=== PATIENT | female | born 1945 | race Two or more races ===

== ENCOUNTER → 2017-08-14 | Outpatient (REF) | payer MEDICARE, OTHER ==
[2017-08-14 16:34] LABS: ANION GAP 9 MEQ/L (8-16); BLOOD UREA NITROGEN 9 MG/DL (7-18); CARBON DIOXIDE LEVEL 25 MEQ/L (21-32); CHLORIDE LEVEL 104 MEQ/L (98-107); CREATININE FOR GFR 0.76 MG/DL (0.55-1.02); GLOMERULAR FILTRATION RATE > 60.0 (>39); GLUCOSE, FASTING 169 MG/DL (83-110); POTASSIUM SERUM 4.3 MEQ/L (3.5-5.1); SODIUM LEVEL 138 MEQ/L (136-145)
== END ==
LOC: M SFHCLERA 11:26
PROVIDERS: ATTEND Family Medicine
DX: E11.9 Type 2 diabetes mellitus without complications (principal)
CPT/HCPCS: 80048; 83036; G0463

== ENCOUNTER → 2019-01-18 | Outpatient (REF) | payer MEDICARE, OTHER ==
[2019-01-18 18:09] LABS: BASO # 0.1 10^3/uL (0.0-0.2); EOS # 0.4 10^3/uL (0.0-0.50); EOS % 6.6 % (0.0-3.0); HEMATOCRIT 41.4 % (36.0-47.0); HEMOGLOBIN 13.9 g/dl (12.0-15.5); LYMPH # 1.2 10^3/uL (1.5-4.5); LYMPH % 20.5 % (24.0-44.0); MEAN CORPUSCULAR HEMOGLOBIN 29.7 pg (27.0-33.0); MEAN CORPUSCULAR HGB CONC 33.6 g/dl (32.0-36.5); MEAN CORPUSCULAR VOLUME 88.5 fl (80.0-96.0); MONO # 0.4 10^3/uL (0.0-0.8); MONO % 6.4 % (0.0-5.0); NEUTROPHILS # 3.8 10^3/uL (1.8-7.7); NEUTROPHILS % 65.3 % (36.0-66.0); PLATELET COUNT, AUTOMATED 148 10^3/uL (150-450); RED BLOOD COUNT 4.68 10^6/uL (4.00-5.40); WHITE BLOOD COUNT 5.8 10^3/uL (4.0-10.0)
[2019-01-18 18:12] LABS: ALBUMIN 3.6 GM/DL (3.2-5.2); ALT/SGPT 40 U/L (12-78); BILIRUBIN,TOTAL 0.4 MG/DL (0.2-1.0); BLOOD UREA NITROGEN 20 MG/DL (7-18); CALCIUM LEVEL 8.6 MG/DL (8.8-10.2); CARBON DIOXIDE LEVEL 25 MEQ/L (21-32); CHLORIDE LEVEL 107 MEQ/L (98-107); CHOLESTEROL LEVEL 198 MG/DL (<200); CHOLESTEROL RISK RATIO 5.351 (<5); CREATININE FOR GFR 0.81 MG/DL (0.55-1.30); GLOMERULAR FILTRATION RATE > 60.0 (>39); GLUCOSE, FASTING 223 MG/DL (70-100); HDL CHOLESTEROL 37 MG/DL (>40); LDL CHOLESTEROL 130 MG/DL (<100); NON-HDL-C 161 MG/DL; POTASSIUM SERUM 4.5 MEQ/L (3.5-5.1); SODIUM LEVEL 139 MEQ/L (136-145); TOTAL PROTEIN 7.2 GM/DL (6.4-8.2); TRIGLYCERIDES LEVEL 153 MG/DL (<150)
[2019-01-18 18:40] LABS: CREATININE, URINE 85.7 MG/DL; MALB URINE SIEMENS 19.4 MG/L; MAU/CREAT RATIO 22.6 MCG/MG (0.0-30.0)
[2019-01-18 18:50] LABS: HEMOGLOBIN A1c 10.6 %
== END ==
LOC: M SFHCLERA 10:12
PROVIDERS: ATTEND Nurse Practitioner Family
DX: Z13.220 Encounter for screening for lipoid disorders (principal); E11.9 Type 2 diabetes mellitus without complications

== ENCOUNTER → 2019-05-09 | Outpatient (CLI) | payer MEDICARE, OTHER ==
[~2019-05-09] MED LIST: B COTAB PO; METF10004 PO; RA M200C4 PO; RA T500C2 PO; TURM1CAP5 PO; VITA-183 PO
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
== END ==
LOC: M ONCR 08:52
PROVIDERS: ATTEND Radiology Radiation Oncology
DX: C21.1 Malignant neoplasm of anal canal (principal)

== ENCOUNTER → 2019-05-13 | Outpatient (CLI) | payer MEDICARE, OTHER ==
[~2019-05-13] MED LIST changes: +GASTROGRAFIN SOLUTION 30ML (Q9963) As Ordered ONE; +ISOVUE-370 76% 100ML VIAL (Q9967) As Ordered ONE
--- NOTE | 2019-05-14 08:33 | REP ---
REASON: Bowel carcinoma. COMPARISON: None. CONTRAST: 100 mL Isovue 370. The lung bases are clear. The precontrast enhanced portion of the examination shows hepatic and splenic densities to be within normal limits. There are no nephroliths. The contrast enhanced portion of the examination shows the liver, spleen, pancreas, adrenal glands, and kidneys to be within normal limits. The abdominal aorta and paraaortic regions are within normal limits. Small paraaortic lymph nodes are present. The bowel loops and their mesenteries are within normal limits. There is no intra-abdominal mass or adenopathy. There is no free fluid or free air. CT PELVIS: The bowel loops and their mesenteries are within normal limits. There is sigmoid colon diverticulosis. There is no mass or adenopathy. There is no free fluid or free air. Bone window technique throughout the exam shows a right hip prosthesis and chronic spinal degenerative changes. IMPRESSION: No acute intra-abdominal or intrapelvic disease. Findings as described above. Electronically Signed by Trace Matson DO 05/14/2019 11:25 A
== END ==
LOC: M RAD 11:30
PROVIDERS: ATTEND Internal Medicine Hematology & Oncology
DX: C21.0 Malignant neoplasm of anus, unspecified (principal)
CPT/HCPCS: 74178; Q9963; Q9967

== ENCOUNTER → 2019-05-15 | Outpatient (CLI) | payer MEDICARE, OTHER ==
[~2019-05-15] MED LIST changes: -GASTROGRAFIN SOLUTION 30ML (Q9963) As Ordered ONE; -ISOVUE-370 76% 100ML VIAL (Q9967) As Ordered ONE
--- NOTE | 2019-05-15 20:24 | REP ---
Body PET CT scan for staging of anal carcinoma: Comparison is the abdomen/pelvis CT dated 05/13/2019. Whole-body scanning is performed from skull base to the upper thighs. Neck and supraclavicular areas: There are no hypermetabolic foci. There is artifactual uptake in the vocal cords. Chest: There are no hypermetabolic foci. Abdomen, pelvis and upper thighs: There are numerous diverticula in the sigmoid colon. Many of these diverticuli are opacified. Some of these diverticuli over the dome of the bladder have a high and uptake values s as a high as 22 . The radiolabeled urine in the bladder has a maximal u of 22. Therefore, the high . Uptake values within some of these diverticuli may represent vesico-diverticular fistula. In addition, there is a focal curvilinear zone of hypermetabolic uptake in the distal rectosigmoid colon lumen posterior to the bladder with a maximal standard uptake value of 8.7. This could represent a hypermetabolic polyp or possibly a bladder fistulization. There are no other hypermetabolic foci. Specifically there are no pelvic, retroperitoneal or periaortic foci. No mesenteric foci. No hepatic or adrenal foci. Impression: There are hypermetabolic foci in distal sigmoid colonic diverticula . The standard uptake values in the diverticula over the bladder dome are similar to the standard uptake value of the radiolabeled urine in the bladder. Therefore, the possibility of vesico- colonic/diverticular fistulization is raised. Additionally, there is a focal hypermetabolic focus in the distal rectosigmoid colon lumen that could represent an intraluminal polyp or another area of vesico-colonic fistulization. There are no hypermetabolic foci otherwise. The study is performed with 8.61 mCi of F 18 FDG. Electronically Signed by Doug Flaherty MD 05/15/2019 08:16 P
== END ==
LOC: M PLARAD 11:50
PROVIDERS: ATTEND Radiology Radiation Oncology
DX: C20 Malignant neoplasm of rectum (principal)
CPT/HCPCS: 78815; A9552

== ENCOUNTER 2019-05-17 07:41 | Outpatient (RCR) | payer MEDICARE, OTHER ==
--- NOTE | 2019-05-21 15:09 | RADONC ---
RADIATION ONCOLOGY SIMULATION NOTE DATE: 05/17/2019 CHART NUMBER: [id number] SIMULATION NOTE: Ms. Beard was taken to the CT scan for CT simulation of her anal field. CT was accomplished without difficulty or discomfort. Radiation treatment planning is underway and radiation treatments will begin subsequently. An immobilization device was created and will be used throughout the course of treatment. It was created without difficulty or discomfort. I was physically present throughout the course of CT simulation.
[2019-06-03] MEDS ORDERED: LIDO2.5C15 TOP (10:32)
[2019-06-03] MEDS ORDERED: ONDA4TAB5 PO (10:55)
[2019-06-04] MEDS ORDERED: LIDO2.5C15 TOP (07:15)
== END 2019-05-25 ==
LOC: M ONCR 07:41
PROVIDERS: ATTEND Radiology Radiation Oncology
DX: C21.1 Malignant neoplasm of anal canal (principal)

== ENCOUNTER → 2019-05-23 | Outpatient (CLI) | payer MEDICARE, OTHER ==
[~2019-05-23] MED LIST changes: +ACETAMINOPHEN 325 MG TAB As Ordered ONE; +ACETAMINOPHEN TAB 650MG DOSE (2X325MG) PO ONE; +HEPARIN 1,000 UNITS/ML 10ML VIAL (FOR RADIOLOGY& DIALYSIS ONLY) As Ordered ONE; +LIDOCAINE 1% MDV 20ML VIAL As Ordered ONE; +MIDAZOLAM INJ 2 MG/2 ML VIAL (J2250) As Ordered ONE; +ceFAZolin 1GM INJ (J0690 PER 500MG) As Ordered ONE; +ceFAZolin 1GM INJ (J0690 PER 500MG) IV ONE; +diazePAM 5 MG TAB As Ordered ONE; +diphenhydrAMINE INJ 50MG/ML VIAL (J1200) As Ordered ONE; +fentaNYL 100 MCG/2 ML INJECTION (J3010) As Ordered ONE
--- NOTE | 2019-05-23 11:00 | IRHP ---
[facility] IR Pre-Procedure H & P General Date of Service: May 23, 2019 Procedure: Same Day Surgery Interval History and Physical I have seen the patient and reviewed last H & P performed within 30 days. There is no significant interval change. History of Present Illness Chief Complaint The patient is a 73-year-old female admitted with a reason for visit of Anal Ca. PRE-PROCEDURE DIAGNOSIS: anal cancer HEART: normal rate. LUNGS: normal breathing at rest. ASA Classification ASA Classification: II-Mild systemic disease Mallampati Score: II NPO: Yes Problems with prior sedation: No Obstructive Sleep Apnea: No Plan moderate sedation Allergies Coded Allergies: No Known Allergies (Unverified , 05/07/19) Home Medications Scheduled Cholecalciferol (Vitamin D3) (Vitamin D3), 1,000 UNIT PO DAILY, (Reported) Metformin HCl (Metformin HCl), 1,000 MG PO BID, (Reported) Turmeric/Turmeric Ext/Pepr Ext (Turmeric Complex 500 mg Cap), 1 CAP PO DAILY, (Reported) Vitamin B Complex (B Complex # 1), 1 TAB PO DAILY, (Reported) Miscellaneous Medications Milk Thistle Seed Extract (Milk Thistle), 1,000 MG PO, (Reported) Turmeric Root Extract (Turmeric), 500 MG PO, (Reported) VS, I&O, 24H, Fishbone Vital Signs/I&O Vital Signs Date Time Temp Pulse Resp B/P (MAP) Pulse Ox O2 Delivery O2 Flow Rate FiO2 05/23/19 10:42 97.8 61 16 99 DOROTHY MIRELES MD May 23, 2019 11:00
--- NOTE | 2019-05-23 15:27 | POST-OPPD ---
Postoperative Procedure Note Date Of Procedure: May 23, 2019 Time Of Procedure: 15:25 PREOPERATIVE DIAGNOSIS: anal ca POSTOPERATIVE DIAGNOSIS: anal ca FINDINGS: normal right IJ PROCEDURE: right IJ port SURGEON: rupinder ANESTHESIA: moderate sedation ESTIMATED BLOOD LOSS: < 15 ml COMPLICATIONS: none POSTOPERATIVE CONDITION: stable DOROTHY MIRELES MD May 23, 2019 15:26
--- NOTE | 2019-05-23 15:53 | REP ---
IR Ultrasound and fluoroscopy-guided port placement. IR Ultrasound of the neck. IR Moderate sedation. Clinical information: Anal cancer. Physician: Dr. Domínguez. Procedure: The patient was advised of the benefits, risks, and alternatives of the procedure and informed consent was obtained. A time-out was performed with verification of the patient's name, MRN, site of procedure and type of procedure to be performed. The patient was positioned in the supine position on the angiographic table. The site was prepped and draped in the usual sterile fashion. Moderate sedation was performed by the physician including the presence of an independent trained observer who assisted and monitored the patient's level of consciousness and physiologic status. Following the administration of Fentanyl and Versed, the physician spent 45 minutes of continuous face to face time with the patient. Ultrasound of the neck reveals a patent and compressible right internal jugular vein. A category director radiograph reveals no gross abnormality. The neck and anterior chest wall were anesthetized with lidocaine. The right internal jugular vein was accessed using a microintroducer needle by a lateral approach. An 018 wire was advanced into the superior vena cava, the needle was removed and a microsheath was placed. An Amplatz wire was then passed into the inferior vena cava. An incision at the internal jugular vein access site and anterior chest wall were made using a scalpel. An incision was made at the anterior chest wall. A small pocket was created using a combination of blunt and sharp dissection. A tunneling device was then used to pass the catheter from the pocket to the neck puncture site. An 8-[place] [employer] power port was then positioned in the pocket. The catheter was then measured and cut. The introducer sheath was exchanged for a peel-away sheath. The catheter was passed through the peel-away sheath into the internal jugular vein and the peel-away sheath was removed. The port tip was positioned at the cavo atrial junction. The port was then accessed with a Sarmiento needle. The port flushes and aspirates well. The puncture site in the neck was closed. The chest wall incision was then closed with 2-0 Vicryl and 4-0 Monocryl. Glue and Steri-Strips were applied. A sterile dressing was then applied. The patient tolerated the procedure well and was returned to the PRU in stable condition. Estimated blood loss: <5 ml. Complications: None. Conclusion: 1. Successful placement of an 8-[place] Angi[employer] power port via the right internal jugular vein. The port is ready for immediate use. 2. Patient to follow up in IR clinic in 2 weeks. Thank you for this referral. Electronically Signed by Olena Domínguez MD 05/23/2019 03:51 P
[2019-05-23 17:45] VITALS: BP 161/74
== END ==
LOC: M IRPRO 08:40
PROVIDERS: ATTEND Radiology Diagnostic Radiology
DX: C21.0 Malignant neoplasm of anus, unspecified (principal)
CPT/HCPCS: 36563; 76937; 77001; 99152; 99153; C1769; C1788; C1894; J0690; J1200; J2250; J3010

== ENCOUNTER → 2019-06-11 | Outpatient (POV) | payer MEDICARE, OTHER ==
[~2019-06-11] VITALS: Ht 160 cm; Wt 68.2 kg
[~2019-06-11] MED LIST changes: -ACETAMINOPHEN 325 MG TAB As Ordered ONE; -ACETAMINOPHEN TAB 650MG DOSE (2X325MG) PO ONE; -HEPARIN 1,000 UNITS/ML 10ML VIAL (FOR RADIOLOGY& DIALYSIS ONLY) As Ordered ONE; +LIDO2.5C15 TOP; -LIDOCAINE 1% MDV 20ML VIAL As Ordered ONE; -MIDAZOLAM INJ 2 MG/2 ML VIAL (J2250) As Ordered ONE; +ONDA4TAB5 PO; -ceFAZolin 1GM INJ (J0690 PER 500MG) As Ordered ONE; -ceFAZolin 1GM INJ (J0690 PER 500MG) IV ONE; -diazePAM 5 MG TAB As Ordered ONE; -diphenhydrAMINE INJ 50MG/ML VIAL (J1200) As Ordered ONE; -fentaNYL 100 MCG/2 ML INJECTION (J3010) As Ordered ONE
[2019-06-11 12:44] VITALS: BP 133/65
--- NOTE | 2019-06-12 15:10 | IPNPDOC ---
Text Note Date of Service The patient was seen on 06/11/19. NOTE Follow-up 2 weeks status post port placement. Patient doing well. Denies pain or discomfort. Port worked well for infusion. No fevers or chills. On examination: Site appears good. No tenderness or discharge. Impression: Healing well post port placement. Port works well. All patient's questions were answered. No further follow-up required unless initiated by patient or infusion. Thank you for this referral Peggy OLIVER, I+O Peggy OLIVER, I+O Vital Signs Date Time Temp Pulse Resp B/P (MAP) Pulse Ox O2 Delivery O2 Flow Rate FiO2 06/11/19 12:44 97.4 100 18 133/65 (87) 98 DOROTHY MIRELES MD Jun 12, 2019 15:10
== END ==
LOC: M IRPOV 12:35
PROVIDERS: ATTEND Radiology Diagnostic Radiology
DX: Z45.2 Encounter for adjustment and management of vascular access device (principal)

== ENCOUNTER → 2019-06-24 | Outpatient (RCR) | payer MEDICARE, OTHER ==
--- NOTE | 2019-06-12 13:10 | RADONC ---
RADIATION ONCOLOGY PROGRESS NOTE DATE: 06/10/2019 CHART NUMBER: [id number] Ms. Beard is presently at a dose of 1080 cGy to her anus and is tolerating treatments quite well at this point with no complaints related to her radiation therapy. She is having no urinary or bowel difficulties and no bone pain. The patient's review of systems is noncontributory. Denies nausea, vomiting, fevers, chills, night sweats, diplopia, headaches, anxiety or depression, anorexia, weight loss, visual disturbances, chest pain, urinary or bowel difficulties, bone pain, or neurological problems. PHYSICAL EXAMINATION The patient's skin is in good condition with no evidence of radiation change present. There is no moist dry desquamation. The remainder of her physical exam remains unchanged. Ms. Beard is tolerating treatments quite well and radiation will continue as scheduled.
--- NOTE | 2019-06-19 07:24 | RADONC ---
RADIATION ONCOLOGY PROGRESS NOTE: DATE: 06/18/2019 CHART NUMBER: [id number] Ms. Beard is presently at a dose of 1980 cGy to her anus and is tolerating treatments quite well at this point with no significant difficulties related to her radiation therapy other than some gas. REVIEW OF SYSTEMS: The patient's review of systems is positive for some gassy feeling but is otherwise noncontributory. She denies nausea, vomiting, fevers, chills, night sweats, diplopia, headaches, anxiety or depression, anorexia, weight loss, visual disturbances, chest pain, urinary or bowel difficulties, bone pain, or neurological problems. PHYSICAL EXAMINATION: The patient's skin is in good condition with no evidence of moist or dry desquamation. The remainder of her physical exam remains unchanged. Ms. Beard is tolerating treatments quite well and radiation will continue as scheduled.
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
== END ==
LOC: M ONCR 05-30 13:06
PROVIDERS: ATTEND Radiology Radiation Oncology
DX: C21.1 Malignant neoplasm of anal canal (principal)

== ENCOUNTER 2019-07-25 18:46 | Emergency (ER) | payer MEDICARE, OTHER ==
[~2019-07-25] VITALS: Ht 160 cm; Wt 65.0 kg
[2019-07-25] MEDS ORDERED: POTASSIUM CHLORIDE 10 MEQ SR TABLET PO ONE (19:15)
[2019-07-25] MEDS ORDERED: KCL 10MEQ/100ML SWI (KRUN) 10 MEQ in IV 1 EA IV ONE (20:00)
[2019-07-25 21:29] VITALS: BP 164/77
== END 2019-07-25 21:30 | disposition home or self-care (01) ==
LOC: M ED 18:46
DX: E87.6 Hypokalemia (principal); C20 Malignant neoplasm of rectum; E11.9 Type 2 diabetes mellitus without complications
CPT/HCPCS: 36591; 80053; 85025; 96365; 99284; G0463; J1642

== ENCOUNTER → 2019-07-25 | Outpatient (RCR) | payer MEDICARE, OTHER ==
--- NOTE | 2019-07-02 11:16 | ONC.PHACK ---
CHEMO ADMIN CHECKLIST Order Contains Pt ID: Name, Order on Chemo Order Form?: Yes Order Form Includes ALL: Correct Tx Day, Correct Date, Correct Cycle Number Pt ID on Order form Matches: Pt ID on PHA Label Med on Chemo OrderForm Matches: PHA Label, Med Used for Preparation [facility] Jul 02, 2019 11:16
--- NOTE | 2019-07-02 12:40 | RADONC ---
RADIATION ONCOLOGY PROGRESS NOTE DATE: 07/01/2019 CHART #: [id number] Ms. Beard is presently at a dose of 3600 cGy to her anus and is tolerating treatments quite well at this point with no significant difficulties related to her radiation therapy. She has some anal discomfort but overall is doing well. REVIEW OF SYSTEMS: The patient's review of systems is positive for some anal discomfort but is otherwise noncontributory. Denies nausea, vomiting, fevers, chills, night sweats, diplopia, headaches, anxiety or depression, anorexia, weight loss, visual disturbances, chest pain, urinary or bowel difficulties, bone pain, or neurological problems. PHYSICAL EXAMINATION: The patient's skin is overall in good condition with just some minimal dry desquamation. There is some erythema and tanning present. The remainder of her physical exam remains unchanged. Ms. Beard is tolerating treatments quite well and radiation will continue as scheduled.
--- NOTE | 2019-07-09 08:09 | RADONC ---
RADIATION ONCOLOGY PROGRESS NOTE DATE: 07/08/2019 CHART NUMBER: [id number] Ms. Beard is thus far at a dose of 4320 cGy to her anus and was last treated on 07/05/2019. She was scheduled for treatment today but did not show up for treatment. As of Monday she had been tolerating her treatments fairly well. She was complaining of some skin discomfort, but was otherwise having no significant difficulties. We were able to reach the patient today however and she says she is in significant pain with skin peeling and is not coming in today. She did not wish to talk to anyone, but does report she has some kind of pain medication already. She will see whether or not she is up to coming in to see us tomorrow. We will continue to follow her closely and give her pain medications or whatever is necessary. She is approaching completion of her treatment.
[~2019-07-25] MED LIST changes: +OXYC-517 PO; +PROTPAK PO; +SILV40CR EXT
--- NOTE | 2019-07-26 13:29 | RADONC ---
RADIATION ONCOLOGY PROGRESS NOTE DATE: 07/25/2019 CHART #: [id number] Ms. Beard was last treated to her anus on 07/05/2019. She had refused to come in following that, although we did make multiple phone calls to her asking to come in at least to be evaluated. I also requested that she come to the emergency room, but the patient reported that she is in too much pain to leave her house. The patient did come in today for further discussion. Thus far, she has had 24 fractions out of 28. This brings her only to a dose of 4320 cGy. I did have a very lengthy discussion with this patient and let her know that at this point the dose of radiation is quite low and there is a significant likelihood of recurrence. I let her know that if she decides not to undergo further treatment she will need to be watched closely for the first sign of recurrence so that surgical salvage could be undertaken. I did describe to the patient the idea behind surgical salvage and the process. The patient was really concerned with the chance of recurrence and has agreed to complete her treatments. It is today so she is scheduled for a treatment today and tomorrow and then on Monday and Monday. That will complete her planned treatment regimen. I spoke with her medical oncologist, Dr. Huffman, and the patient is not scheduled for any further chemotherapy at this point. I made clear to the patient that since her treatments even with these four fractions have been compromised by this extended break, she will require close followup in the future in order to detect any chance of possible recurrence. In light of my impending shelter, we will set her up with her GI physician for that followup. In the meantime, radiation will resume. On physical exam, her skin is healing nicely. Areas of desquamation have basically resolved.
== END ==
LOC: M ONCR 06-25 15:28
PROVIDERS: ATTEND Radiology Radiation Oncology
DX: C21.0 Malignant neoplasm of anus, unspecified (principal)

== ENCOUNTER → 2019-07-25 | Outpatient (CLI) | payer MEDICARE, OTHER | LOC: M ONCR 14:20 | PROVIDERS: ATTEND Radiology Radiation Oncology | DX: C21.1 Malignant neoplasm of anal canal (principal) ==

== ENCOUNTER 2019-07-30 14:06 | Outpatient (RCR) | payer MEDICARE, OTHER ==
--- NOTE | 2019-07-29 15:16 | RADONC ---
RADIATION ONCOLOGY PROGRESS NOTE DATE: 07/29/2019 CHART NUMBER: [id number] Mrs. Beard, with a diagnosis of an anal cancer, has been receiving radiotherapy. She will complete her radiotherapy tomorrow where upon she will be a total dose of 5040 cGy. She has had multiple interruptions secondary to discomfort. REVIEW OF SYSTEMS: She specifically denies any nausea, vomiting, significant diarrhea, dysuria, hematuria or blood per rectum. She does have irritation of the skin, which results in significant discomfort. EXAMINATION FINDINGS: The skin within the irradiated volume shows areas of marked erythematous changes secondary to her treatment. There is no palpable peripheral lymphadenopathy. Lungs are clear. Heart: Regular. The remainder of the physical examination is unchanged. IMPRESSION: Tolerating therapy reasonably well at this time. The patient has had multiple interruptions secondary to poor tolerance. PLAN: She has one more treatment to complete her entire prescribed dose of radiotherapy. A radiotherapy treatment summary will be forthcoming.
--- NOTE | 2019-07-30 22:55 | RADONC ---
RADIATION ONCOLOGY TREATMENT SUMMARY DATE: 07/30/2019 CHART NUMBER: [id number] She has a diagnosis of anal carcinoma, stage T1NXM0. PLAN OF RADIOTHERAPY: Combination local regional radiotherapy with concomitant chemotherapy. DATE RADIOTHERAPY STARTED: May 30, 2019 DATE RADIOTHERAPY CONCLUDED: July 30, 2019 DOSE: The patient received a total of 5040 cGy administered in 28 fractions over 59 elapsed days, IMRT/IGRT was employed for treatment delivery during her entire course of radiotherapy. A 6 MV photon beam was implemented for actual treatment delivery. Prior to treatment delivery localization was accomplished upon our CT simulator where upon treatment portals were defined by the use of multileaf collimators. STATUS OF TUMOR: The patient's tumor status will be determined by future examination findings, overall radiographic evaluations and clinical performance status. TOLERANCE: In general, her treatments were not well tolerated as she had a great deal of discomfort, and this resulted in poor compliance secondary to her discomfort. She was given emollients and creams to help her with her skin irritation, yet the patient overall did have a fairly poor compliance resulting in prolongation of her radiotherapy. Her overall time course of radiotherapy was prolonged secondary to her lack of compliance and multiple self determined interruptions. DISPOSITION: Return to clinic in approximately 1 month or p.r.n., and she was advised to return to her referring physicians as per their directions and instructions. Thank you for referring this very nilay lady to us and allowing us the opportunity of participation in her overall management. Most Sincerely, cc: Nasreen Huffman MD
== END 2019-08-24 ==
LOC: M ONCR 14:06
PROVIDERS: ATTEND Radiology Radiation Oncology
DX: C21.1 Malignant neoplasm of anal canal (principal)

== ENCOUNTER → 2019-08-20 | Outpatient (REF) | payer MEDICARE, OTHER | LOC: M SFHCLERA 10:52 | PROVIDERS: ATTEND Nurse Practitioner Family | DX: N39.0 Urinary tract infection, site not specified (principal) ==

== ENCOUNTER → 2019-08-28 | Outpatient (CLI) | payer MEDICARE, OTHER ==
--- NOTE | 2019-08-28 12:30 | RADONC ---
RADIATION ONCOLOGY FOLLOWUP NOTE DATE OF SERVICE: 08/28/2019 Ms. Beard is a 73-year-old lady who carries a diagnosis of squamous cell CA of the anus, Stage T1NxM0. She completed combination of radiation and chemotherapy on 07/30/2019. INTERVAL HISTORY: She has been doing very well. She no longer has any pain or bloody stool. She denies any bowel problems, however, she was treated for UTI recently. SYSTEMIC REVIEW: She has no complaints, denies fever, weight changes and fatigue, denies bowel problem no symptoms now. She denies any bone pain, respiratory symptoms. PHYSICAL EXAMINATION: Her ECOG performance status is 0. She is well developed, nourished, not in apparent distress. Lungs are clear. Abdomen is soft, nontender and nondistended. There are no palpable nodes in both inguinal areas. The perianal skin shows dry desquamative reaction. There are no lesions palpable. There is no swelling of the extremities. ASSESMENT and RECOMMENDATION: Ms. Beard is a 73-year-old lady who carries a diagnosis of squamous cell CA of the anus, Stage T1NxM0. She completed combination of radiation and chemotherapy on 07/30/2019. She was advised to continue followup care with the physicians involved and she was also asked to return here in 3 months or sooner if it needed. MELBAD
== END ==
LOC: M ONCR 10:56
PROVIDERS: ATTEND Radiology Radiation Oncology
DX: C21.1 Malignant neoplasm of anal canal (principal); Z92.3 Personal history of irradiation; Z92.21 Personal history of antineoplastic chemotherapy

== ENCOUNTER → 2019-10-29 | Outpatient (CLI) | payer MEDICARE, OTHER ==
[~2019-10-29] MED LIST changes: +BIOT1000 PO; +CVS1000C17 PO; +EQL50TAB2 PO; +MACR100C43 PO; +METF500T13 PO; +ONDA-83 PO; -ONDA4TAB5 PO; +VITAD1000T PO
--- NOTE | 2019-10-30 09:08 | REP ---
Body PET CT scan for staging of anal carcinoma: Comparison is the prior PET CT scan dated May 15, 2019. Whole-body scanning is performed of the skull base to the upper thighs. Neck and supraclavicular areas: There are no hypermetabolic foci. Artifactual radial labeling of the vocal cords is similar to the prior study. Chest: There are no hypermetabolic foci. This is unchanged. Abdomen, pelvis and upper thighs: Numerous sigmoid colon diverticuli are again identified. There is radiolabeling of the distal sigmoid colon along the posterior inferior margin of the bladder. This bowel is radiolabeling is contiguous with the radiolabeled urine in the bladder lumen .This is again suggestive of a vesicocolonic fistula. Inferior to this there is slight uptake in the anus with a maximal standard uptake value measuring 3.1. This is borderline hypermetabolic. On the prior study the standard uptake value in the anus was 5.2. Impression: There is borderline uptake in the anus with the standard uptake value measuring 3.1. The standard uptake value in the anus on the prior study was 5.2. 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 The study is performed with 8.50 mCi of F 18 FDG. Electronically Signed by Doug Flaherty MD 10/30/2019 09:00 A
== END ==
LOC: M PLARAD 13:09
PROVIDERS: ATTEND Internal Medicine Hematology
DX: C20 Malignant neoplasm of rectum (principal)
CPT/HCPCS: 78815; A9552

== ENCOUNTER → 2019-10-30 | Outpatient (CLI) | payer MEDICARE, OTHER ==
[~2019-10-30] MED LIST changes: -MACR100C43 PO; -VITAD1000T PO
--- NOTE | 2019-10-30 14:08 | RADONC ---
RADIATION ONCOLOGY FOLLOWUP NOTE DATE OF SERVICE: 10/30/2019 CHART NUMBER: [id number] DIAGNOSIS: Anal cancer. STAGE: Stage I, T1NxM0. ECOG PERFORMANCE STATUS: 0. FOLLOWUP NOTE: Mrs. Beard is a very pleasant 74-year-old white female with the diagnosis of what appears to be a stage I, T1NxM0 squamous cell carcinoma of the anal canal who is presenting to us today for routine followup visit 2 months post completion of external beam radiation therapy. The patient presents today reporting that she is doing quite well with no complaints at this time related to her radiation therapy or disease. She is having no urinary or bowel difficulties and no bone pain. The patient's review of systems is noncontributory. Denies nausea, vomiting, fevers, chills, night sweats, diplopia, headaches, anxiety or depression, anorexia, weight loss, visual disturbances, chest pain, urinary or bowel difficulties, bone pain, or neurological problems. PHYSICAL EXAMINATION: The patient is a well-developed, well-nourished female in no acute distress. HEENT exam is normocephalic, atraumatic. Extraocular movements are intact. There is no palpable cervical, supraclavicular, infraclavicular, axillary, or inguinal lymphadenopathy present. Lungs are clear to auscultation and percussion. Heart has a regular rate and rhythm. Abdomen is benign with no hepatosplenomegaly, masses, or tenderness. Skeletal examination reveals no tenderness to pressure or percussion of the bony skeleton. Extremities reveal no clubbing, cyanosis, or edema. Neurologic exam is grossly intact, as is the remainder of the physical examination. Anal/rectal: Examination reveals normal perirectal skin. I do not appreciate any hard nodularity or ulceration in the anal verge, anal canal or rectum. There is some slight scar tissue on the patient's right side where her original lesion was. There was no bleeding present. ASSESSMENT The patient is clinically JARED at this time. A PET/CT scan was done on 10/29/2019 that shows just now borderline uptake in the anus with an SUV value down to 3.1. Previous SUV was 5.2. I believe the patient is doing clinically quite well at this point. Her colorectal surgeon, however is in [place] and she reports that she will be returning down there. I have tentatively set her up for a followup in my office in three months' time. She is scheduled see her medical oncologist, Brock Hughes MD, tomorrow. The patient reports that she will soon be returning to [place], and I have asked her to set up an appointment with her initial diagnosing physician. I have discussed with her the need for close followup, especially over the next few years. If there is any type of recurrence or residual disease, surgery would be indicated. She is aware of this. cc: Brock Hughes MD [facility]
== END ==
LOC: M ONCR 10:16
PROVIDERS: ATTEND Radiology Radiation Oncology
DX: C21.1 Malignant neoplasm of anal canal (principal)

== ENCOUNTER 2019-11-25 15:54 | Emergency (ER) | payer MEDICARE, OTHER ==
[~2019-11-25] VITALS: Ht 157.5 cm; Wt 66.8 kg
[2019-11-25] MEDS ORDERED: VITAD1000T PO (16:05)
[2019-11-25 18:27] LABS: BASO % 0.4 % (0.0-1.0); EOS # 0.2 10^3/uL (0.0-0.5); EOS % 3.3 % (0.0-3.0); HEMOGLOBIN 10.5 g/dl (12.0-15.5); LYMPH # 0.7 10^3/uL (1.5-5.0); LYMPH % 14.5 % (24.0-44.0); MEAN CORPUSCULAR HEMOGLOBIN 31.2 pg (27.0-33.0); MEAN CORPUSCULAR HGB CONC 32.8 g/dl (32.0-36.5); MONO # 0.3 10^3/uL (0.0-0.8); MONO % 6.4 % (0.0-5.0); NEUTROPHILS # 3.4 10^3/uL (1.5-8.5); NEUTROPHILS % 75.2 % (36.0-66.0); PLATELET COUNT, AUTOMATED 140 10^3/uL (150-450); RED BLOOD COUNT 3.37 10^6/uL (4.00-5.40); WHITE BLOOD COUNT 4.5 10^3/uL (4.0-10.0)
[2019-11-25 18:43] LABS: ALBUMIN 3.5 GM/DL (3.2-5.2); ALT/SGPT 29 U/L (12-78); BILIRUBIN,DIRECT 0.1 MG/DL (0.0-0.2); BILIRUBIN,TOTAL 0.3 MG/DL (0.2-1.0); BLOOD UREA NITROGEN 14 MG/DL (7-18); CALCIUM LEVEL 9.1 MG/DL (8.8-10.2); CARBON DIOXIDE LEVEL 28 MEQ/L (21-32); CHLORIDE LEVEL 104 MEQ/L (98-107); CREATININE FOR GFR 0.77 MG/DL (0.55-1.30); GLOMERULAR FILTRATION RATE > 60.0 (>39); GLUCOSE, FASTING 247 MG/DL (70-100); POTASSIUM SERUM 3.8 MEQ/L (3.5-5.1); SODIUM LEVEL 138 MEQ/L (136-145); TOTAL PROTEIN 7.4 GM/DL (6.4-8.2)
[2019-11-25] MEDS: GASTROGRAFIN SOLUTION 30ML PO SCH ×2 (18:59→19:25)
[2019-11-25] MEDS ORDERED: ISOVUE-370 76% 100ML VIAL (Q9967) As Ordered ONE (20:22)
--- NOTE | 2019-11-25 21:02 | REPVR ---
PROCEDURE INFORMATION: Exam: CT Abdomen And Pelvis With Contrast Exam date and time: 11/25/2019 8:31 PM Age: 74 years old Clinical indication: Abdominal pain; Additional info: Tarry stools, recent chemo rectal CA, concern fistula TECHNIQUE: Imaging protocol: Computed tomography of the abdomen and pelvis with intravenous contrast. Radiation optimization: All CT scans at this facility use at least one of these dose optimization techniques: automated exposure control; mA and/or kV adjustment per patient size (includes targeted exams where dose is matched to clinical indication); or iterative reconstruction. Contrast material: ISOVUE 370; Contrast volume: 100 ml; Contrast route: IV; COMPARISON: CT ABD PELVIS W/O FOL BY WIT 05/13/2019 1:05 PM FINDINGS: Liver: Examination of the liver demonstrates a lobular surface contour, and enlargement of the left and caudate lobes, findings consistent with cirrhosis. Gallbladder and bile ducts: Normal. No calcified stones. No ductal dilation. Pancreas: Normal. No ductal dilation. Spleen: There is mild splenomegaly with a maximum span of 14 centimeters. No focal abnormalities demonstrated. Adrenals: Normal. No mass. Kidneys and ureters: Normal. No hydronephrosis. Stomach and bowel: Diverticulosis demonstrated in the left colon. No evidence of diverticulitis. Circumferential thickening of the rectal wall measuring up to 13 mm in maximum thickness with luminal narrowing consistent with known diagnosis of rectal carcinoma. Appendix: No evidence of appendicitis. Intraperitoneal space: Unremarkable. No free air. No significant fluid collection. Vasculature: Enlargement of the main portal vein as well as the right and left portal vein consistent with portal hypertension. No thrombosis. The aorta demonstrates mild atherosclerotic calcification. Lymph nodes: No lymphadenopathy demonstrated in the mesorectum. Bladder: There is diffuse thickening of the bladder wall likely related to incomplete distention. Clinical correlation to exclude cystitis and less likely bladder neoplasm suggested. Reproductive: Unremarkable as visualized. Bones/joints: Osteoporosis. Mild anterolisthesis of L4 on L5. Severe central spinal stenosis at L2-L3, moderate to severe central spinal stenosis L3-L4, severe central spinal stenosis L4-L5 and moderate to severe central spinal stenosis L5-S1. Status post ORIF right hip. Soft tissues: Unremarkable. IMPRESSION: 1. Examination of the liver demonstrates a lobular surface contour, and enlargement of the left and caudate lobes, findings consistent with cirrhosis. 2. Enlargement of the main portal vein as well as the right and left portal vein consistent with portal hypertension. No thrombosis. 3. There is mild splenomegaly with a maximum span of 14 centimeters. No focal abnormalities demonstrated. 4. Circumferential thickening of the rectal wall measuring up to 13 mm in maximum thickness with luminal narrowing consistent with known diagnosis of rectal carcinoma. 5. There is diffuse thickening of the bladder wall likely related to incomplete distention. Clinical correlation to exclude cystitis and less likely bladder neoplasm suggested. Electronically signed by: Mauricio Fritz On 11/25/2019 21:02:35 PM
[2019-11-25 21:05] LABS: INR 1.09; PROTHROMBIN TIME 13.8 SECONDS (11.8-14.0)
[2019-11-25 21:06] LABS: PARTIAL THROMBOPLASTIN TIME 36.4 SECONDS (25.0-38.4)
[2019-11-25] MEDS ORDERED: MACR100C43 PO (21:20)
[2019-11-25] MEDS ORDERED: NITROFURANTOIN (MACROBID) 100 MG CAP PO ONE (21:30)
[2019-11-25 22:04] VITALS: BP 125/69
--- NOTE | 2019-11-26 06:46 | ED PDOC ---
Post-Departure Follow-Up diandra orellana faxed formal report of ct abd/p for fu Carson Freitas MD Nov 26, 2019 06:46
== END 2019-11-25 22:05 | disposition home or self-care (01) ==
LOC: M ED 15:54
DX: K92.1 Melena (principal); N39.0 Urinary tract infection, site not specified; Z85.048 Personal history of other malignant neoplasm of rectum, rectosigmoid junction, and anus; K76.89 Other specified diseases of liver; N32.89 Other specified disorders of bladder; R16.1 Splenomegaly, not elsewhere classified; E11.9 Type 2 diabetes mellitus without complications; Z79.84 Long term (current) use of oral hypoglycemic drugs; Z79.899 Other long term (current) drug therapy
CPT/HCPCS: 36415; 74177; 80048; 80076; 81001; 85025; 85610; 85730; 86850; 86900; 86901; 87086; 99284; Q9963; Q9967

== ENCOUNTER → 2019-12-27 | Outpatient (CLI) | payer MEDICARE, OTHER ==
[~2019-12-27] MED LIST changes: +MACR100C43 PO; +VITAD1000T PO
[2019-12-27 11:56] LABS: BASO % 0.7 % (0.0-1.0); EOS # 0.1 10^3/uL (0.0-0.5); EOS % 3.5 % (0.0-3.0); HEMATOCRIT 37.4 % (36.0-47.0); HEMOGLOBIN 12.1 g/dl (12.0-15.5); LYMPH # 0.4 10^3/uL (1.5-5.0); LYMPH % 13.2 % (24.0-44.0); MEAN CORPUSCULAR HEMOGLOBIN 31.7 pg (27.0-33.0); MEAN CORPUSCULAR HGB CONC 32.4 g/dl (32.0-36.5); MEAN CORPUSCULAR VOLUME 97.9 fl (80.0-96.0); MONO # 0.2 10^3/uL (0.0-0.8); MONO % 7.6 % (0.0-5.0); NEUTROPHILS # 2.2 10^3/uL (1.5-8.5); NEUTROPHILS % 74.7 % (36.0-66.0); PLATELET COUNT, AUTOMATED 119 10^3/uL (150-450); RED BLOOD COUNT 3.82 10^6/uL (4.00-5.40); WHITE BLOOD COUNT 2.9 10^3/uL (4.0-10.0)
[2019-12-27 12:05] LABS: INR 1.26; PROTHROMBIN TIME 15.5 SECONDS (11.8-14.0)
[2019-12-27 12:06] LABS: PARTIAL THROMBOPLASTIN TIME 39.7 SECONDS (25.0-38.4)
[2019-12-27 12:18] LABS: ALBUMIN 3.4 GM/DL (3.2-5.2); ALT/SGPT 27 U/L (12-78); BILIRUBIN,TOTAL 0.3 MG/DL (0.2-1.0); BLOOD UREA NITROGEN 18 MG/DL (7-18); CALCIUM LEVEL 8.9 MG/DL (8.8-10.2); CARBON DIOXIDE LEVEL 24 MEQ/L (21-32); CHLORIDE LEVEL 103 MEQ/L (98-107); CREATININE FOR GFR 0.85 MG/DL (0.55-1.30); FERRITIN 166 NG/ML (8-252); GLOMERULAR FILTRATION RATE > 60.0 (>39); GLUCOSE, FASTING 340 MG/DL (70-100); IRON (FE) 71 UG/DL (50-170); PERCENT SATURATION 21.3 % (13.2-45.0); POTASSIUM SERUM 4.5 MEQ/L (3.5-5.1); SODIUM LEVEL 136 MEQ/L (136-145); TOTAL IRON BINDING CAPACITY 333 UG/DL (250-450); TOTAL PROTEIN 7.2 GM/DL (6.4-8.2)
== END ==
LOC: M LRY 09:41
PROVIDERS: ATTEND Internal Medicine Hematology
DX: C21.1 Malignant neoplasm of anal canal (principal); Z79.84 Long term (current) use of oral hypoglycemic drugs

== ENCOUNTER → 2020-01-06 | Outpatient (CLI) | payer MEDICARE, OTHER ==
[~2020-01-06] MED LIST changes: +LIDOCAINE 1% MDV 20ML VIAL As Ordered ONE; +MIDAZOLAM INJ 2 MG/2 ML VIAL (J2250) As Ordered ONE; +diphenhydrAMINE 50MG/ML VIAL (J1200) As Ordered ONE; +fentaNYL 100 MCG/2 ML INJECTION (J3010) As Ordered ONE
--- NOTE | 2020-01-06 14:09 | IRHP ---
[facility] IR Pre-Procedure H & P General Date of Service: Jan 06, 2020 Procedure: Same Day Surgery Interval History and Physical I have seen the patient and reviewed last H & P performed within 30 days. There is no significant interval change. History of Present Illness Chief Complaint The patient is a 74-year-old female admitted with a reason for visit of Anal Ca- Finished With Chemo Treatment. PRE-PROCEDURE DIAGNOSIS: rectal ca HEART: normal rate. LUNGS: normal breathing at rest. ASA Classification ASA Classification: III-Severe systemic dis. Mallampati Score: II NPO: Yes Problems with prior sedation: No Obstructive Sleep Apnea: No Plan moderate sedation Allergies Coded Allergies: No Known Allergies (Unverified , 05/07/19) Home Medications Scheduled Metformin HCl (Metformin HCl), 500 MG PO BID, (Reported) VS, I&O, 24H, Fishbone Vital Signs/I&O Vital Signs Date Time Temp Pulse Resp B/P (MAP) Pulse Ox O2 Delivery O2 Flow Rate FiO2 01/06/20 13:51 75 18 100 Nasal Cannula 2 01/06/20 12:56 97.2 Laboratory Data 24H LABS Laboratory Tests 2 01/06/20 13:05: Bedside Glucose (Misc Panel) 258H DOROTHY MIRELES MD Jan 06, 2020 14:09
[2020-01-06 15:55] VITALS: BP 133/77
--- NOTE | 2020-01-07 07:22 | REP ---
IR port removal. IR moderate sedation. Clinical information: rectal ca. treatment complete. Physician: Dr. Domínguez. Procedure: The patient was advised of the benefits, risks and alternatives of the procedure and informed consent was obtained. The time-out was performed with verification of the patient's name, MRN, site of procedure and type of procedure to be performed. The patient was positioned in the supine position on the angiographic table. The site was prepped and draped in the usual sterile fashion. Moderate sedation was performed by the physician including the presence of an independent trained observer who assisted and monitored the patient's level of consciousness and physiologic status. Following the administration of fentanyl and versed, the physician spent 30 minutes of continuous face to face time with the patient. A form tamper operator radiograph reveals right sided port in place. The soft tissues overlying the port pocket were anesthetized with lidocaine. An incision was made over the port using an 15 blade scalpel in the location of the prior incision. The catheter was then freed with blunt dissection and extracted. Pressure was applied to obtain hemostasis. The port was then freed with blunt dissection and subsequently removed. There are no signs of infection. After hemostasis was achieved, the incision was closed with interrupted deep 2-0 Vicryl sutures and subcuticular Monocryl sutures. The site was cleansed and covered with a sterile dressing. A follow-up radiograph demonstrates complete removal of the port. The patient tolerated the procedure well and was returned to PRU in stable condition. EBL: < 5 ml. Complications: None. Conclusion: 1. Successful explant of a right sided port. 2. No signs of infection. Thank you this referral. Electronically Signed by Olena Domínguez MD 01/06/2020 02:08 P
== END ==
LOC: M IRPRO 12:15
PROVIDERS: ATTEND Radiology Diagnostic Radiology
DX: Z45.2 Encounter for adjustment and management of vascular access device (principal); C20 Malignant neoplasm of rectum; Z79.84 Long term (current) use of oral hypoglycemic drugs
CPT/HCPCS: 36590; 99152; 99153; J1200; J1644; J2250; J3010

== ENCOUNTER → 2020-02-21 | Outpatient (REF) | payer MEDICARE, OTHER ==
[~2020-02-21] MED LIST changes: +AUGM875T28 PO; -LIDOCAINE 1% MDV 20ML VIAL As Ordered ONE; -MIDAZOLAM INJ 2 MG/2 ML VIAL (J2250) As Ordered ONE; -diphenhydrAMINE 50MG/ML VIAL (J1200) As Ordered ONE; -fentaNYL 100 MCG/2 ML INJECTION (J3010) As Ordered ONE
[2020-02-21 13:10] LABS: INR 1.06; PROTHROMBIN TIME 13.5 SECONDS (11.8-14.0)
[2020-02-21 13:42] LABS: ALBUMIN 3.4 GM/DL (3.2-5.2); ALT/SGPT 33 U/L (12-78); BILIRUBIN,TOTAL 0.4 MG/DL (0.2-1.0); BLOOD UREA NITROGEN 15 MG/DL (7-18); CARBON DIOXIDE LEVEL 27 MEQ/L (21-32); CHLORIDE LEVEL 105 MEQ/L (98-107); CREATININE FOR GFR 0.85 MG/DL (0.55-1.30); FERRITIN 121 NG/ML (8-252); GLOMERULAR FILTRATION RATE > 60.0 (>39); GLUCOSE, FASTING 217 MG/DL (70-100); IRON (FE) 93 UG/DL (50-170); PERCENT SATURATION 26.4 % (13.2-45.0); SODIUM LEVEL 139 MEQ/L (136-145); TOTAL IRON BINDING CAPACITY 352 UG/DL (250-450); TOTAL PROTEIN 7.6 GM/DL (6.4-8.2)
[2020-02-21 13:53] LABS: HEPATITIS B SURFACE ANTIGEN NEGATIVE (NEGATIVE)
[2020-02-21 14:20] LABS: HEPATITIS C VIRUS ABY INDEX 0.1 INDEX (<0.8)
[2020-02-21 14:21] LABS: HEPATITIS B CORE ANTIBODY IGM NEGATIVE (NEGATIVE)
[2020-02-21 14:23] LABS: HEPATITIS A ANTIBODY IGM NEGATIVE (NEGATIVE)
== END ==
LOC: M SFHCLERA 10:34
PROVIDERS: ATTEND Family Medicine
DX: K74.60 Unspecified cirrhosis of liver (principal)
CPT/HCPCS: 36415; 80053; 82728; 83550; 85610; 86705; 86709; 86803; 87340; G0463

== ENCOUNTER → 2020-03-04 | Outpatient (CLI) | payer MEDICARE, OTHER ==
--- NOTE | 2020-03-04 16:25 | REP ---
REASON FOR EXAM: Pain. AP and lateral views were obtained standing. There are no priors for comparison. Standing AP and lateral views of the cervical spine show degenerative disc space narrowing at every level, particularly seen at the C5-6 and C6-7 levels where there is heavy anterior and posterior osteophytic ridging. The facet joints appear to be well aligned bilaterally. Hypertrophic degenerative facet and uncovertebral joint changes are present at every level bilaterally, particularly on the left at the L3-4 and L4-5 levels. The dens cannot be affectively evaluated due to the superimposition of the osseous structures and/or dentition on the open-mouth view. AP and lateral views of the thoracic spine show degenerative disc space narrowing throughout with anterior lipping and syndesmophyte formation seen on the right side of the thoracic spine from T6 to T11-12 inclusive. The bones appear demineralized. The pedicles appear to be intact bilaterally. AP and lateral views of the lumbar spine show posterior disc space narrowing at every level with universal disc space narrowing at L4-5 and L5-S1. At L4-5, there is grade 1 L4 upon L5 spondylolisthesis. There is anterior lipping at every level. The pedicles appear to be intact bilaterally. The exam is limited by two views. Degenerative facet joint changes are present at every level bilaterally, particularly at L4-5 and L5-S1. IMPRESSION: 1. The examination is limited by two views of each segment of spine. A fracture cannot be ruled out. If a fracture is of clinical concern, this examination is insufficient and CT examination is required. 2. Degenerative changes throughout as described above. Electronically Signed by Trace Matson DO 03/04/2020 05:06 P
== END ==
LOC: M LRY 11:17
PROVIDERS: ATTEND Chiropractor
DX: M99.03 Segmental and somatic dysfunction of lumbar region (principal); M54.41 Lumbago with sciatica, right side; M99.01 Segmental and somatic dysfunction of cervical region; M50.33 Other cervical disc degeneration, cervicothoracic region

== ENCOUNTER → 2020-09-01 | Outpatient (REF) | payer MEDICARE, OTHER ==
[~2020-09-01] MED LIST changes: +D31000TA2 PO; -VITAD1000T PO
== END ==
LOC: M SFHCLERA 16:01
PROVIDERS: ATTEND Nurse Practitioner Family
DX: R30.0 Dysuria (principal)
CPT/HCPCS: 81002; 87088; 87186; G0463

== ENCOUNTER → 2020-09-14 | Outpatient (CLI) | payer MEDICARE, OTHER ==
[2020-09-14 10:53] LABS: HEMATOCRIT 41.6 % (36.0-47.0); HEMOGLOBIN 13.7 g/dl (12.0-15.5); MEAN CORPUSCULAR HEMOGLOBIN 31.1 pg (27.0-33.0); MEAN CORPUSCULAR HGB CONC 32.9 g/dl (32.0-36.5); MEAN CORPUSCULAR VOLUME 94.3 fl (80.0-96.0); PLATELET COUNT, AUTOMATED 102 10^3/uL (150-450); RED BLOOD COUNT 4.41 10^6/uL (4.00-5.40); WHITE BLOOD COUNT 3.3 10^3/uL (4.0-10.0)
[2020-09-14 11:04] LABS: PROTHROMBIN TIME 13.4 SECONDS (12.5-14.3)
[2020-09-14 11:24] LABS: ALBUMIN 3.6 GM/DL (3.2-5.2); ALT/SGPT 29 U/L (12-78); BILIRUBIN,DIRECT 0.1 MG/DL (0.0-0.2); BILIRUBIN,TOTAL 0.4 MG/DL (0.2-1.0); BLOOD UREA NITROGEN 20 MG/DL (7-18); CALCIUM LEVEL 9.1 MG/DL (8.8-10.2); CARBON DIOXIDE LEVEL 27 MEQ/L (21-32); CHLORIDE LEVEL 104 MEQ/L (98-107); CREATININE FOR GFR 0.96 MG/DL (0.55-1.30); GLOMERULAR FILTRATION RATE > 60.0 (>39); GLUCOSE, FASTING 176 MG/DL (70-100); IRON (FE) 67 UG/DL (50-170); PERCENT SATURATION 20.2 % (13.2-45.0); POTASSIUM SERUM 4.2 MEQ/L (3.5-5.1); SODIUM LEVEL 138 MEQ/L (136-145); TOTAL IRON BINDING CAPACITY 332 UG/DL (250-450); TOTAL PROTEIN 7.3 GM/DL (6.4-8.2)
[2020-09-14 11:25] LABS: PARTIAL THROMBOPLASTIN TIME 36.7 SECONDS (24.2-38.5)
[2020-09-14 14:16] LABS: HEPATITIS B SURFACE ANTIGEN NEGATIVE (NEGATIVE)
[2020-09-14 14:44] LABS: HEPATITIS C VIRUS ABY INDEX 0.1 INDEX (<0.8)
== END ==
LOC: M WUC 08:51
PROVIDERS: ATTEND Internal Medicine Gastroenterology
DX: K74.60 Unspecified cirrhosis of liver (principal); E11.65 Type 2 diabetes mellitus with hyperglycemia

== ENCOUNTER → 2020-09-14 | Outpatient (CLI) | payer MEDICARE, OTHER ==
[2020-09-14 11:21] LABS: HEMOGLOBIN A1c 8.5 %
== END ==
LOC: M WUC 08:48
PROVIDERS: ATTEND Family Medicine
DX: E11.65 Type 2 diabetes mellitus with hyperglycemia (principal)

== ENCOUNTER → 2020-10-07 | Outpatient (CLI) | payer MEDICARE, OTHER ==
[~2020-10-07] MED LIST changes: +ACTO30TA15 PO
== END ==
LOC: M LABSMTC 09:50
PROVIDERS: ATTEND Anesthesiology
DX: Z01.812 Encounter for preprocedural laboratory examination (principal); Z20.822 Contact with and (suspected) exposure to COVID-19

== ENCOUNTER 2020-10-12 08:27 | Day surgery (SDC) | payer MEDICARE, OTHER ==
[~2020-10-12] VITALS: Ht 157.5 cm; Wt 65.7 kg
[~2020-10-12 08:27] MED LIST changes: +LIDOCAINE 2% 100MG/5ML SDV (FOR ANES.) As Ordered ONE; +NS 1,000 ML IV ONE; +fentaNYL 100 MCG/2 ML INJECTION (J3010) As Ordered ONE; +propofoL 200 MG/20 ML VIAL As Ordered ONE
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
--- OUTSIDE RECORDS SUMMARY | 2020-10-12 08:29 | CCD ---
Author Author [facility] Organization [facility] Address Unknown Phone Unavailable Care Team Providers Care Rehab Services Aide Name Role Phone VaheLucio larkinnzie Unavailable PROBLEMS Type Condition ICD9-CM Code IKS82-HG Code Onset Dates Condition S tatus SNOMED Code Notes Problem Diabetes E11.9 Active 03541552 Problem Poorly controlled diabetes mellitus E11.65 Acti ve 731972924 Problem Portal hypertension K76.6 Active 60855133 Problem Cirrhosis of liver without ascites, unsp ecified hepatic cirrhosis type K74.60 Active 20975910 Problem Type 2 diabetes mellitus E11.9 Active 5804557 6 Problem Moderate single current episode of major depressive disord er F32.1 Active 43352772 Problem Influenza vaccination declined by patient Z28.21 Active 365138295 Problem Anal carcinoma C21.0 Active 651656195 ALLERGIES No Known Allergies ENCOUNTERS from 1945 to 2020-09-05 Encounter Location Date Provider Diagnosis [facility] [id number] [place] [id number] Aug, Patti Cotter Dysuria R30.0 and Rectal bleeding K62.5 IMMUNIZATIONS Vaccine Route Administration Date Status Influenza [...] Education Language: Question Answer Notes Languages spoken: German Quaker: Question Answer Notes Quaker 33 None Sexual Hx: Question Answer Notes [...] REASON FOR REFERRAL No Information VITAL SIGNS Weight 144 lbs Aug, Height 63 in Aug, BMI 25.51 kg/m2 Aug, Heart Rate 76 /min Aug, Respiratory Rate 17 /min Aug, Temperature 97.2 degrees Fahrenheit Aug, Oximetry 100 Aug, Blood pressure systolic 191 mm Hg Aug, Blood pressure diastolic 82 mm Hg Aug, MEDICATIONS Medication SIG (Take, Route, Frequency, Duration) [...] days Feb, Not-Taking PROCEDURES No Information RESULTS Component Value Reference Range URINE CULTURE Reviewed date:09/03/2020 12:03:40 Interpretation: Performing Lab:[facility], [facility] [address] [id number] , ,[facility]01 REASON FOR VISIT UTI AND WANTS TO TALK TO PCP. MEDICAL (GENERAL) HISTORY Type Description Date Medical [...] No Information FUNCTIONAL STATUS No Information ASSESSMENTS Encounter Date Diagnosis Assessment Notes Treatment Notes Treatm ent Clinical Notes Aug, Dysuria (ICD-10 - R30.0) Given age and CVA tenderness w/ tx as complicated UTI. Start Cipro, make sure you take all of the antibiotics until they're gone. Increase amount of water you drink over the next couple of days as this will help your body fight off the infection. Aug, Rectal bleeding (ICD-10 - K62.5) Urgent referral to GI for further evaluation. No external hemorrhoids, no visible internal hemorrhoids, digital exam unremarkable. Concern present as pt s/p anal cancer. PLAN OF TREATMENT Medication Medication Name Sig Start Date Stop Date Ciprofloxacin HCl 500 MG 1 tablet Orally every 12 hrs for 5 day( s) Aug, Treatment Notes Assessment Notes Clinical Notes Dysuria Given age and CVA te nderness w/ tx as complicated UTI. Start Cipro, make sure you take all of the antibiotics until they're gone. Increase amount of water you drink over the next couple of days as this will help your body fight off the infection. Rectal bleeding Urgent referral to [facility] for further evaluation. No external hemorrhoids, no visible internal hemorrhoids, digital exam unremarkable. Concern present as pt s/p anal cancer. Treatment Notes Test Name Order Date Urinalysis, no micro 2020-09-05 Next Appt Details after GI Reason: Insurance Providers Payer Name Payer Address Payer Phone Insured Name Patient Relati onship to Insured Coverage Start Date Coverage End Date FOR LIFE [address] [facility] [id number] SAL JOHNSON 2010 MEDICARE Part A and B [address] [facility] [phone] RASHAD BOWERS 2009
--- OUTSIDE RECORDS SUMMARY | 2020-10-12 08:29 | CCD ---
Author Author [facility] Organization [facility] Address Unknown Phone Unavailable Care Team Providers Care Nurse Assessor Name Role Phone Patti Cottre Unavailable PROBLEMS Type Condition ICD9-CM Code OEI50-BD Code Onset Dates Condition S tatus SNOMED Code Notes Problem Diabetes E11.9 Active 09997058 Problem Poorly controlled diabetes mellitus E11.65 Acti ve 724594164 Problem Portal hypertension K76.6 Active 65880915 Problem Cirrhosis of liver without ascites, unsp ecified hepatic cirrhosis type K74.60 Active 37121226 Problem Type 2 diabetes mellitus E11.9 Active 4391858 6 Problem Moderate single current episode of major depressive disord er F32.1 Active 02330948 Problem Influenza vaccination declined by patient Z28.21 Active 865249596 Problem Anal carcinoma C21.0 Active 010796904 ALLERGIES No Known Allergies ENCOUNTERS from 1945 to 2020-09-16 Encounter Location Date Provider Diagnosis [facility] [address] [place] [phone] Aug, Patti Vahe Poorly controlled diabetes mellitus E11. 65 IMMUNIZATIONS Vaccine Route Administration Date Status Influenza [...] Education Language: Question Answer Notes Languages spoken: Korean Orthodox: Question Answer Notes Orthodox 33 None Sexual Hx: Question Answer Notes [...] Information RESULTS No Results REASON FOR VISIT HA1c 8.5% MEDICAL (GENERAL) HISTORY Type Description Date Medical [...] Treatment Notes Treatm ent Clinical Notes Aug, Poorly controlled diabetes mellitus (ICD-10 - E1 1.65) PLAN OF TREATMENT Medication Medication Name Sig Start Date Stop Date Ciprofloxacin HCl 500 MG 1 tablet Orally every 12 hrs for 5 day( s) Aug, Insurance Providers Payer Name Payer Address Payer Phone Insured Name Patient Relati onship to Insured Coverage Start Date Coverage End Date FOR LIFE [address] [facility] [id number] SAL JOHNSON 2010 MEDICARE Part A and B [address] [facility] [id number] [phone] RASHAD BOWERS 2010
--- OUTSIDE RECORDS SUMMARY | 2020-10-12 08:29 | CCD ---
Author Author [facility] Organization [facility] Address Unknown Phone Unavailable Care Team Providers Care [employer] Senior Officer Name Role Phone PARRA, JOHN Unavailable Unavailable PARRA, JOHN Unavailable Unavailable PARRA, JOHN Unavailable Unavailable PARRA, JOHN Unavailable Unavailable PARRA, JOHN Unavailable Unavailable PARRA, JOHN Unavailable Unavailable PARRA, JOHN Unavailable Unavailable PARRA, JOHN Unavailable Unavailable PARRA, JOHN Unavailable Unavailable PARRA, JOHN Unavailable Unavailable PARRA, JOHN Unavailable Unavailable PARRA, JOHN Unavailable Unavailable PARRA, JOHN Unavailable Unavailable PARRA, JOHN Unavailable Unavailable PARRA, JOHN Unavailable Unavailable PARRA, JOHN Unavailable Unavailable PARRA, JOHN Unavailable Unavailable PARRA, JOHN Unavailable Unavailable PARRA, JOHN Unavailable Unavailable PARRA, JOHN Unavailable Unavailable PARRA, JOHN Unavailable Unavailable PARRA, JOHN Unavailable Unavailable PARRA, JOHN Unavailable Unavailable PARRA, JOHN Unavailable Unavailable PARRA, JOHN Unavailable Unavailable Re-disclosure Warning The records that you are about to access may contain information from federally-assisted alcohol or drug abuse programs. If such information is present, then the following federally mandated warning applies: This information has been disclosed to you from records protected by federal confidentiality rules (42 CFR part 2). The federal rules prohibit you from making any further disclosure of this information unless further disclosure is expressly permitted by the written consent of the person to whom it pertains or as otherwise permitted by 42 CFR part 2. A general authorization for the release of medical or other information is NOT sufficient for this purpose. The Federal rules restrict any use of the information to criminally investigate or prosecute any alcohol or drug abuse patient.The records that you are about to access may contain highly sensitive health information, the redisclosure of which is protected by Article 27-F of the [facility] Public Health law. If you continue you may have access to information: Regarding HIV / AIDS; Provided by facilities licensed or operated by the [facility] Office of Mental Health; or Provided by the [facility] Office for People With Developmental Disabilities. If such information is present, then the following [facility] mandated warning applies: This information has been disclosed to you from confidential records which are protected by state law. State law prohibits you from making any further disclosure of this information without the specific written consent of the person to whom it pertains, or as otherwise permitted by law. Any unauthorized further disclosure in violation of state law may result in a fine or fci sentence or both. A general authorization for the release of medical or other information is NOT sufficient authorization for further disc losure. Family History Family Member Name Family Member Gender Family Member Status Date o f Status Description Data Source(s) Unknown Female Problem [facility] ([facility] Unknown Female Problem [facility] ([facility] Unknown Unknown Problem [facility] ([facility] Encounters Encounter Providers Location Date Indications Data Source(s ) Unknown [address] [facility] [place] [address] 09/15/2020 12:00:00 AM EST eCW1 ([facility]) Unknown [address] [facility] [address] [place] [address] 09/04/2020 12:00:00 AM EST eCW1 ([facility]) Outpatient [address] [facility] [place] [address] 09/01/2020 12:00:00 AM EST eCW1 ([facility]) [place] [address] [facility] [place] [address] 02/21/2020 12:00:00 AM EDT eCW1 ([facility]) [place] [address] [facility] [place] [address] 02/21/2020 12:00:00 AM EDT eCW1 ([facility] [address] [facility] [place] [address] 02/14/2020 12:00:00 AM EDT eCW1 ([facility]) Outpatient Referrer: JOHN PARRA 02/03/2020 08:24:00 A M EDT [facility] [address] [facility] [place] [address] 01/30/2020 12:00:00 AM EDT eCW1 ([facility]) [facility] [place] [address] [facility] [place] [address] 01/17/2020 12:00:00 AM EDT eCW1 ([facility]) [facility] [place] [address] [facility] [place] [address] 12/27/2019 12:00:00 AM EDT eCW1 ([facility] [address] [facility] [place] [address] 12/17/2019 12:00:00 AM EDT eCW1 ([facility] [address] [facility] [place] [address] 12/04/2019 12:00:00 AM EDT eCW1 ([facility]) Outpatient Referrer: JOHN PARRA 11/28/2019 02:14:00 P M EST [facility] [place] [address] [facility] [place] [address] 11/28/2019 12:00:00 AM EST eCW1 ([facility] [address] [facility] [place] [address] 11/28/2019 12:00:00 AM EST eCW1 ([facility] [address] [facility] [place] [address] 11/26/2019 12:00:00 AM EST eCW1 ([facility]) Outpatient Referrer: JOHN PARRA 11/06/2019 02:20:00 P M EST [facility] [address] [facility] [place] [address] 10/16/2019 12:00:00 AM EST eCW1 ([facility] [address] [facility] [place] [address] 10/10/2019 12:00:00 AM EST eCW1 ([facility] [address] [facility] [place] [address] 08/20/2019 12:00:00 AM EST eCW1 ([facility]) [facility] [address] [facility] [place] [address] 08/20/2019 12:00:00 AM EST eCW1 ([facility]) Medications Medication Brand Name Start Date Product Form Dose Route Admi nistrative Instructions Pharmacy Instructions Status Indications Reaction Description Data Source(s) Ciprofloxacin 500 MG Oral Tablet Ciprofloxacin HCl 500 MG Ciprofloxacin HCl 500 MG 09/01/2020 12:00:00 AM EST 1.0 {tablet} activ e Ciprofloxacin HCl 500 MG eCW1 ([facility]) Ciprofloxacin 500 MG Oral Tablet Ciprofloxacin HCl 500 MG Ciprofloxacin HCl 500 MG 09/01/2020 12:00:00 AM EST 1.0 {tablet} activ e Ciprofloxacin HCl 500 MG eCW1 ([facility]) Ciprofloxacin 500 MG Oral Tablet Ciprofloxacin HCl 500 MG Ciprofloxacin HCl 500 MG 09/01/2020 12:00:00 AM EST 1.0 {tablet} activ e Ciprofloxacin HCl 500 MG eCW1 ([facility]) Metformin hydrochloride 1000 MG Oral Tablet Metformin HCl 1000 MG Metformin HCl 1000 MG 03/03/2020 12:00:00 AM EDT 1.0 {tablet_with_a_meal} active Metformin HCl 1000 MG eCW1 ([facility]) Metformin hydrochloride 1000 MG Oral Tablet Metformin HCl 1000 MG Metformin HCl 1000 MG 03/03/2020 12:00:00 AM EDT 1.0 {tablet_with_a_meal} active Metformin HCl 1000 MG eCW1 ([facility]) Metformin hydrochloride 1000 MG Oral Tablet Metformin HCl 1000 MG Metformin HCl 1000 MG 03/03/2020 12:00:00 AM EDT 1.0 {tablet_with_a_meal} active Metformin HCl 1000 MG eCW1 ([facility]) Metformin hydrochloride 1000 MG Oral Tablet Metformin HCl 1000 MG Metformin HCl 1000 MG 03/03/2020 12:00:00 AM EDT 1.0 {tablet_with_a_meal} active Metformin HCl 1000 MG eCW1 ([facility]) pioglitazone 15 MG Oral Tablet Pioglitazone HCl 15 MG Piogli tazone HCl 15 MG 02/21/2020 12:00:00 AM EDT 1.0 {tablet} active Pioglitazone HCl 15 MG eCW1 ([facility]) pioglitazone 15 MG Oral Tablet Pioglitazone HCl 15 MG Piogli tazone HCl 15 MG 02/21/2020 12:00:00 AM EDT 1.0 {tablet} active Pioglitazone HCl 15 MG eCW1 ([facility]) pioglitazone 15 MG Oral Tablet Pioglitazone HCl 15 MG Piogli tazone HCl 15 MG 02/21/2020 12:00:00 AM EDT 1.0 {tablet} active Pioglitazone HCl 15 MG eCW1 ([facility]) pioglitazone 15 MG Oral Tablet Pioglitazone HCl 15 MG Piogli tazone HCl 15 MG 02/21/2020 12:00:00 AM EDT 1.0 {tablet} active Pioglitazone HCl 15 MG eCW1 ([facility]) pioglitazone 15 MG Oral Tablet Pioglitazone HCl 15 MG Piogli tazone HCl 15 MG 02/21/2020 12:00:00 AM EDT 1.0 {tablet} active Pioglitazone HCl 15 MG eCW1 ([facility]) FreeStyle Lite Test - FreeStyle Lite Test - 10/18/2019 12:00:00 AM EST active FreeStyle Lite Test - eCW1 ( [facility]) FreeStyle Lite - FreeStyle Lite - 10/18/2019 12:00:00 AM EST active as directed eCW1 ([facility]) FreeStyle Lite - FreeStyle Lite - 10/18/2019 12:00:00 AM EST active FreeStyle Lite - eCW1 ([facility]) FreeStyle Lite Test - FreeStyle Lite Test - 10/18/2019 12:00:00 AM EST active FreeStyle Lite Test - eCW1 ( [facility]) FreeStyle Lite Test - FreeStyle Lite Test - 10/18/2019 12:00:00 AM EST active FreeStyle Lite Test - eCW1 ( [facility]) FreeStyle Lite Test - FreeStyle Lite Test - 10/18/2019 12:00:00 AM EST active FreeStyle Lite Test - eCW1 ( [facility]) FreeStyle Lite - FreeStyle Lite - 10/18/2019 12:00:00 AM EST active FreeStyle Lite - eCW1 ([facility]) FreeStyle Lite - FreeStyle Lite - 10/18/2019 12:00:00 AM EST active FreeStyle Lite - eCW1 ([facility]) FreeStyle Lite Test - FreeStyle Lite Test - 10/18/2019 12:00:00 AM EST active as directed eCW1 ([facility]) FreeStyle Lite Test - FreeStyle Lite Test - 10/18/2019 12:00:00 AM EST active FreeStyle Lite Test - eCW1 ( [facility]) FreeStyle Lite - FreeStyle Lite - 10/18/2019 12:00:00 AM EST active FreeStyle Lite - eCW1 ([facility]) FreeStyle Lite - FreeStyle Lite - 10/18/2019 12:00:00 AM EST active FreeStyle Lite - eCW1 ([facility]) Ciprofloxacin 500 MG Oral Tablet Ciprofloxacin HCl 500 MG Ciprofloxacin HCl 500 MG 08/20/2019 12:00:00 AM EST active 1 tablet eCW1 ([facility]) Ciprofloxacin 500 MG Oral Tablet Ciprofloxacin HCl 500 MG Ciprofloxacin HCl 500 MG 08/20/2019 12:00:00 AM EST 1.0 {tablet} suspe nded Ciprofloxacin HCl 500 MG eCW1 ([facility]) Ciprofloxacin 500 MG Oral Tablet Ciprofloxacin HCl 500 MG Ciprofloxacin HCl 500 MG 08/20/2019 12:00:00 AM EST 1.0 {tablet} suspe nded Ciprofloxacin HCl 500 MG eCW1 ([facility]) Ciprofloxacin 500 MG Oral Tablet Ciprofloxacin HCl 500 MG Ciprofloxacin HCl 500 MG 08/20/2019 12:00:00 AM EST 1.0 {tablet} suspe nded Ciprofloxacin HCl 500 MG eCW1 ([facility]) Ciprofloxacin 500 MG Oral Tablet Ciprofloxacin HCl 500 MG Ciprofloxacin HCl 500 MG 08/20/2019 12:00:00 AM EST 1.0 {tablet} suspe nded Ciprofloxacin HCl 500 MG eCW1 ([facility]) Ciprofloxacin 500 MG Oral Tablet Ciprofloxacin HCl 500 MG Ciprofloxacin HCl 500 MG 08/20/2019 12:00:00 AM EST 1.0 {tablet} suspe nded Ciprofloxacin HCl 500 MG eCW1 ([facility]) Ciprofloxacin 500 MG Oral Tablet Ciprofloxacin HCl 500 MG Ciprofloxacin HCl 500 MG 08/20/2019 12:00:00 AM EST suspended 1 tablet eCW1 ([facility]) Insurance Providers Payer name Policy type / Coverage type Policy ID Covered republican ID Covered republican's relationship to lucero Policy [place] Plan Information MEDICARE [id number] SP [id number] FOR LIFE [id number] MEDICARE [id number] SP [id number] A FOR LIFE [id number] SP [id number] MEDICARE [id number] SP [id number] [id number] MEDICARE C [id number] S [id number] T75 FOR LIFE [id number] FOR LIFE [id number] [id number] FOR LIFE O [id number] S [id number] FOR LIFE [id number] SP [id number] FOR LIFE O [id number] S [id number] FOR LIFE [id number] [id number] [facility] [id number] ANSI-Medicare Part B [id number] ANSI-Medicare Part B [id number] ANSI-Commercial [id number] Medicare Medigap Part B [id number] Self [id number] For Life Commercial [id number] Family Dependent [id number] Medicare Dme Medicare Primary [id number] Self [id number] Medicare Dme Medicare Primary Self For Life Commercial Family Dependent Medicare Medicare Primary Self MEDICARE C [id number] S [id number] A FOR LIFE -O/P [id number] 01 [id number] MEDICARE PART A -O/P [id number] 18 [id number] FOR LIFE [id number] SP [id number] For Life Medigap Part B Family Dependent Medicare [facility] Medicare Primary Self [facility] 020/520 [id number] SP [id number] [facility] [id number] SP [id number] A Problems, Conditions, and Diagnoses Code Display Name Description Problem Type Effective Dates Data Source(s) K74.60 [id number] Cirrhosis of liver w ithout ascites, unspecified hepatic cirrhosis type Problem 02/21/2020 12:00:00 AM EDT eCW1 ([facility]) K76.6 [id number] Portal hypertension Problem 11/26/2019 12:00 :00 AM EST eCW1 ([facility]) K76.6 [id number] Portal hypertension Problem 11/26/2019 12:00 :00 AM EST eCW1 ([facility]) C21.0 [id number] Anal carcinoma Problem 08/20/2019 12:00:00 A M EST eCW1 ([facility]) C21.0 [id number] Anal carcinoma Problem 08/20/2019 12:00:00 A M EST eCW1 ([facility]) Surgeries/Procedures Procedure Description Date Indications Data Source(s) Office Visit, Est Pt., Level 2 FC 11/26/2019 12:00:00 AM EST eCW1 ([facility]) Office Visit, Est Pt., Level 3 PC 11/26/2019 12:00:00 AM EST eCW1 ([facility]) URINE-NO MICRO 08/20/2019 12:00:00 AM EST eCW1 ([facility]) Results ID Date Data Source [id number] 10/07/2020 10:00:00 AM EST [facility] Name Value Range Interpretation Code Description Data Yeimi rce(s) Supporting Document(s) SARS coronavirus 2 RNA Not Detected [facility] [place] This lab was ordered by [facility] and reported by [facility]. ID Date Data Source URINE CULTURE 09/01/2020 12:00:00 AM EST eCW1 ([facility]) Name Value Range Interpretation Code Description Data Yeimi rce(s) Supporting Document(s) URINE CULTURE eCW1 ([facility]) Procedure Social History Code Duration Value Status Description Data Source(s ) Smoking 09/01/2020 12:00:00 AM EST Never Smoker completed Never S moker eCW1 ([facility]) Smoking 09/01/2020 12:00:00 AM EST Never Smoker completed Never S moker eCW1 ([facility]) Smoking 09/01/2020 12:00:00 AM EST Never Smoker completed Never S moker eCW1 ([facility]) Smoking 02/21/2020 12:00:00 AM EDT Never Smoker completed Never S moker eCW1 ([facility]) Vital Signs ID Date Data Source UNK Name Value Range Interpretation Code Description Data Source(s) Body surface area Derived from formula 1.66 m2 1.66 m2 [facility] ([facility]) Body weight 64.865 kg 64.865 kg [facility] ([facility]) [place] body weight 110 [lb_av] 110 [facility]_av] [facility] Body mass index (BMI) [Ratio] 26.2 kg/m2 26.2 k g/m2 [facility] ([facility]) Body weight 143.00 [lb_av] 143.00 [lb_av] [facility] Body height 62 [in_i] 62 [in_i] [facility] ([facility]) 5'2" Diastolic blood pressure 74 mm[Hg] 74 mm[Hg] [facility] ([facility]) Systolic blood pressure 138 mm[Hg] 138 mm[Hg] [facility] Diastolic blood pressure 82 mm[Hg] 82 mm[Hg] eCW1 ([facility]) Systolic blood pressure 191 mm[Hg] 191 mm[Hg] e CW1 ([facility]) Body temperature 97.2 [degF] 97.2 [degF] eCW1 ( [facility]) Respiratory rate 17 /min 17 /min eCW1 ([facility] of [facility]) Heart rate 76 /min 76 /min eCW1 ([facility]) Body mass index (BMI) [Ratio] 25.51 kg/m2 25.51 kg/m2 eCW1 ([facility]) Body height 63 [in_i] 63 [in_i] eCW1 ([facility]) Body weight 144 [lb_av] 144 [lb_av] eCW1 ([facility]) Diastolic blood pressure 69 mm[Hg] 69 mm[Hg] eCW1 ([facility]) Systolic blood pressure 154 mm[Hg] 154 mm[Hg] e CW1 ([facility]) Body temperature 98.6 [degF] 98.6 [degF] eCW1 ( [facility]) Respiratory rate 16 /min 16 /min eCW1 ([facility] of [facility]) Heart rate 78 /min 78 /min eCW1 ([facility]) Body mass index (BMI) [Ratio] 25.15 kg/m2 25.15 kg/m2 eCW1 ([facility]) Body height 63 [in_i] 63 [in_i] eCW1 ([facility]) Body weight 142 [lb_av] 142 [lb_av] eCW1 ([facility]) Diastolic blood pressure 61 mm[Hg] 61 mm[Hg] eCW1 ([facility]) Systolic blood pressure 126 mm[Hg] 126 mm[Hg] e CW1 ([facility]) Body temperature 97.9 [degF] 97.9 [degF] eCW1 ( [facility]) Respiratory rate 16 /min 16 /min eCW1 ([facility] of [facility]) Heart rate 85 /min 85 /min eCW1 ([facility]) Body mass index (BMI) [Ratio] 24.80 kg/m2 24.80 kg/m2 eCW1 ([facility]) Body height 63 [in_us] 63 [in_us] eCW1 ([facility]) Body weight Measured 140 [lb_av] 140 [lb_av] eC W1 ([facility]) Diastolic blood pressure 71 mm[Hg] 71 mm[Hg] eCW1 ([facility]) Systolic blood pressure 152 mm[Hg] 152 mm[Hg] e CW1 ([facility]) Body temperature 97.5 [degF] 97.5 [degF] eCW1 ( [facility]) Respiratory rate 16 /min 16 /min eCW1 ([facility] of [facility]) Heart rate 90 /min 90 /min eCW1 ([facility]) Body mass index (BMI) [Ratio] 24.44 kg/m2 24.44 kg/m2 eCW1 ([facility]) Body height 63 [in_us] 63 [in_us] eCW1 ([facility]) Body weight Measured 138 [lb_av] 138 [lb_av] eC W1 ([facility]) Patient Treatment Plan of Care Planned Activity Planned Date Details Description Data Source (s) Ciprofloxacin 500 MG Oral Tablet 09/01/2020 12:00:00 AM EST eCW1 ([facility]) Ciprofloxacin 500 MG Oral Tablet 09/01/2020 12:00:00 AM EST eCW1 ([facility]) Ciprofloxacin 500 MG Oral Tablet 09/01/2020 12:00:00 AM EST eCW1 ([facility]) Metformin hydrochloride 1000 MG Oral Tablet 03/03/2020 12:00:00 AM EDT eCW1 ([facility]) pioglitazone 15 MG Oral Tablet 02/21/2020 12:00:00 AM EDT eCW1 ([facility]) pioglitazone 15 MG Oral Tablet 02/21/2020 12:00:00 AM EDT eCW1 ([facility]) Ciprofloxacin 500 MG Oral Tablet 08/20/2019 12:00:00 AM EST eCW1 ([facility])
--- OUTSIDE RECORDS SUMMARY | 2020-10-12 08:29 | CCD | Continuity of Care Document ---
Author Author Cherelle BEARDEN M.D. Organization Unknown Address [address] [place] [address], [address] [address] Phone [phone] Care Team Providers Care Analog Ic Design Architect Name Role Phone Patti Cotter AUTM Problems Description No Information Available Social History Type Date Description Comments Sex Unknown ETOH Use Denies alcohol use Tobacco Use Start: Unknown Non Smoker Allergies, Adverse Reactions, Alerts Description No Known Drug Allergies Medications Active Medications SIG Qnty Indications Ordering Provide r Date Metformin HCL 1000mg Tablets 1tab po bid Unknown Immunizations Description No Information Available Vital Signs Date Vital Result Comment 09/07/2020 8:35am BP Systolic 138 mmHg BP Diastolic 74 mmHg Height 62 inches 5'2" Weight 143.00 lb BMI (Body Mass Index) 26.2 kg/m2 [place] Body Weight 110 lb Weight 64.865 kg BSA (Body Surface Area) 1.66 m2 Results Description No Information Available Procedures Description No Information Available Medical Devices Description No Information Available Encounters Description No Information Available Assessments Description No Information Available Plan of Treatment No Information Available Functional Status Description No Information Available Mental Status Description No Information Available Referrals Refer to Reason for Referral Status Appt Date Julián Bearden M.D. w/ new onset rectal bleedi ng x 4 weeks, increasing in severity, also w/ diarrhea, no visible external hemorrhoids Created 09/07/[address] [place] [address], [address] [address] [phone]
--- NOTE | 2020-10-12 11:10 | ROOR ---
Patient Name: Cherelle Beard Procedure Date: 10/12/2020 9:55 AM Date of : 1945 Age: 74 Room: [facility] Gender: Female Note Status: Finalized Procedure: Upper GI endoscopy Indications: Dyspepsia, Dysphagia Providers: Julián Fabian MD Referring MD: Patti COBB Requesting Provider: Medicines: Monitored Anesthesia Care Complications: No immediate complications. Procedure: Pre-Anesthesia Assessment: - Prior to the procedure, a History and Physical was performed, and patient medications and allergies were reviewed. The patient is competent. The risks and benefits of the procedure and the sedation options and risks were discussed with the patient. All questions were answered and informed consent was obtained. Patient identification and proposed procedure were verified by the physician, the nurse and the anesthesiologist in the procedure room. Mental Status Examination: alert and oriented. Airway Examination: normal oropharyngeal airway and neck mobility. Respiratory Examination: clear to auscultation. CV Examination: normal. Prophylactic Antibiotics: The patient does not require prophylactic antibiotics. Prior Anticoagulants: The patient has taken no previous anticoagulant or antiplatelet agents. ASA Grade Assessment: III - A patient with severe systemic disease. After reviewing the risks and benefits, the patient was deemed in satisfactory condition to undergo the procedure. The anesthesia plan was to use monitored anesthesia care (MAC). Immediately prior to administration of medications, the patient was re-assessed for adequacy to receive sedatives. The heart rate, respiratory rate, oxygen saturations, blood pressure, adequacy of pulmonary ventilation, and response to care were monitored throughout the procedure. The physical status of the patient was re-assessed after the procedure. The Endoscope was introduced through the mouth, and advanced to the second part of duodenum. The upper GI endoscopy was accomplished without difficulty. The patient tolerated the procedure well. Findings: Mucosal changes including small-caliber esophagus and crepe paper esophagus were found in the lower third of the esophagus. Multiple biopsies were obtained in the lower third of the esophagus with cold forceps for evaluation of eosinophilic esophagitis. Verification of patient identification for the specimen was done by the physician and nurse using the patient's name, date and medical record number. Estimated blood loss was minimal. Scattered moderate inflammation characterized by erosions, erythema and granularity was found in the gastric antrum. Biopsies were taken with a cold forceps for Helicobacter pylori testing. The duodenal bulb and second portion of the duodenum were normal. Impression: - Esophageal mucosal changes suspicious for eosinophilic esophagitis. - Gastritis. Biopsied. - Normal duodenal bulb and second portion of the duodenum. - Multiple biopsies were obtained in the lower third of the esophagus. Recommendation: - Patient has a contact number available for emergencies. The signs and symptoms of potential delayed complications were discussed with the patient. Return to normal activities tomorrow. Written discharge instructions were provided to the patient. - Chopped diet, mechanical soft diet and high fiber diet. - Follow an antireflux regimen. - Recommend acid suppression medication for 6 weeks. - Await pathology results. - Return to GI clinic in [facility] (address [address], [address], [place], [facility]) in 4 -- 6 weeks. Please call GI clinic @ [phone] for apppointment date and time. - Return to primary care physician. Procedure Code(s): --- Professional --- 89106, Esophagogastroduodenoscopy, flexible, transoral; with biopsy, single or multiple Diagnosis Code(s): --- Professional --- K22.8, Other specified diseases of esophagus K29.70, Gastritis, unspecified, without bleeding R10.13, Epigastric pain R13.10, Dysphagia, unspecified CPT copyright 2019 [employer]. All rights reserved. The codes documented in this report are preliminary and upon orthopedic nurse review may be revised to meet current compliance requirements. Julián Fabian MD Julián Fabian MD 10/12/2020 11:10:17 AM Electronically signed by Julián Fabian MD Number of Addenda: 0 Note Initiated On: 10/12/2020 9:55 AM Estimated Blood Loss: Estimated blood loss was minimal.
[2020-10-12 11:20] VITALS: BP 187/77
--- NOTE | 2020-10-12 11:29 | ROOR ---
Patient Name: Cherelle Beard Procedure Date: 10/12/2020 9:56 AM Date of : 1945 Age: 74 Room: [facility] Gender: Female Note Status: Finalized Procedure: Colonoscopy Indications: Hematochezia Providers: Julián Fabian MD Referring MD: Patti COBB Requesting Provider: Medicines: Midazolam 2 mg IV, Fentanyl 75 micrograms IV, Monitored Anesthesia Care Complications: No immediate complications. Procedure: Pre-Anesthesia Assessment: - Prior to the procedure, a History and Physical was performed, and patient medications and allergies were reviewed. The patient is competent. The risks and benefits of the procedure and the sedation options and risks were discussed with the patient. All questions were answered and informed consent was obtained. Patient identification and proposed procedure were verified by the physician, the nurse and the anesthesiologist in the procedure room. Mental Status Examination: alert and oriented. Airway Examination: normal oropharyngeal airway and neck mobility. Respiratory Examination: clear to auscultation. CV Examination: normal. Prophylactic Antibiotics: The patient does not require prophylactic antibiotics. Prior Anticoagulants: The patient has taken no previous anticoagulant or antiplatelet agents. ASA Grade Assessment: III - A patient with severe systemic disease. After reviewing the risks and benefits, the patient was deemed in satisfactory condition to undergo the procedure. The anesthesia plan was to use monitored anesthesia care (MAC). Immediately prior to administration of medications, the patient was re-assessed for adequacy to receive sedatives. The heart rate, respiratory rate, oxygen saturations, blood pressure, adequacy of pulmonary ventilation, and response to care were monitored throughout the procedure. The physical status of the patient was re-assessed after the procedure. The Colonoscope was introduced through the anus and advanced to the terminal ileum, with identification of the appendiceal orifice and IC valve. The colonoscopy was performed without difficulty. The patient tolerated the procedure well. The quality of the bowel preparation was good. The terminal ileum, ileocecal valve, appendiceal orifice, and rectum were photographed. Scope insertion time was 2 minutes. Scope withdrawal time was 9 minutes. The total duration of the procedure was 12 minutes. Findings: The perianal exam findings include a perianal rash. The terminal ileum appeared normal. A 11 mm polyp was found in the descending colon. The polyp was sessile. The polyp was removed with a cold snare. Resection and retrieval were complete. Verification of patient identification for the specimen was done by the physician and nurse using the patient's name, date and medical record number. Estimated blood loss was minimal. A single small localized angioectasia with stigmata of recent bleeding was found in the cecum. For hemostasis, one hemostatic clip was successfully placed. There was no bleeding at the end of the procedure. Diffuse severe mucosal changes characterized by congestion (edema), erythema, friability and granularity were found in the recto-sigmoid colon. Biopsies were taken with a cold forceps for histology. Retroflexion in the rectum was not performed due to anatomy. A foreign body was found in the cecum. Removal of Denture was accomplished with a Brown net. Impression: - Perianal rash found on perianal exam. - The examined portion of the ileum was normal. - One 11 mm polyp in the descending colon, removed with a cold snare. Resected and retrieved. - A single recently bleeding colonic angioectasia. Clip was placed. - Diffuse severe mucosal changes were found in the recto-sigmoid colon secondary to colitis. Biopsied. - Foreign body in the cecum. Removal was successful. Recommendation: - Patient has a contact number available for emergencies. The signs and symptoms of potential delayed complications were discussed with the patient. Return to normal activities tomorrow. Written discharge instructions were provided to the patient. - Chopped diet, mechanical soft diet and high fiber diet. - Continue present medications. - Use hydrocortisone suppository 25 mg 1 per rectum once a day for 4 weeks. - Await pathology results. - Perform a flexible sigmoidoscopy for further evaluation of the rectum and sigmoid colon in 3 months. - Repeat colonoscopy in 3 years for surveillance based on pathology results. - Return to GI clinic in [facility] (address [address], [address], [place], [facility]) in 4 -- 6 weeks. Please call GI clinic @ [phone] for apppointment date and time. - Return to primary care physician. Procedure Code(s): --- Professional --- 47818, 59, Colonoscopy, flexible; with control of bleeding, any method 46267, Colonoscopy, flexible; with removal of tumor(s), polyp(s), or other lesion(s) by snare technique 57583, Colonoscopy, flexible; with removal of foreign body(s) 08169, 59, Colonoscopy, flexible; with biopsy, single or multiple Diagnosis Code(s): --- Professional --- R21, Rash and other nonspecific skin eruption K63.5, Polyp of colon K55.21, Angiodysplasia of colon with hemorrhage K52.9, Noninfective gastroenteritis and colitis, unspecified T18.4XXA, Foreign body in colon, initial encounter K92.1, Melena (includes Hematochezia) CPT copyright 2019 [employer]. All rights reserved. The codes documented in this report are preliminary and upon manager provider relations review may be revised to meet current compliance requirements. Julián Fabian MD Julián Fabian MD 10/12/2020 11:29:25 AM Electronically signed by Julián Fabian MD Number of Addenda: 0 Note Initiated On: 10/12/2020 9:56 AM Estimated Blood Loss: Estimated blood loss was minimal.
== END 2020-10-12 11:46 | disposition home or self-care (01) ==
LOC: M OPP 08:27
PROVIDERS: ATTEND Internal Medicine Gastroenterology
DX: K92.1 Melena (principal); K63.5 Polyp of colon; K55.21 Angiodysplasia of colon with hemorrhage; K52.9 Noninfective gastroenteritis and colitis, unspecified; T18.4XXA Foreign body in colon, initial encounter; R21 Rash and other nonspecific skin eruption; R13.10 Dysphagia, unspecified; R10.13 Epigastric pain; K29.70 Gastritis, unspecified, without bleeding; K22.8 Other specified diseases of esophagus
CPT/HCPCS: 43239; 45379; 45380; 45382; 45385; 88305; J3010

== ENCOUNTER → 2020-12-10 | Outpatient (CLI) | payer MEDICARE, OTHER ==
[~2020-12-10] MED LIST changes: -LIDOCAINE 2% 100MG/5ML SDV (FOR ANES.) As Ordered ONE; -NS 1,000 ML IV ONE; -fentaNYL 100 MCG/2 ML INJECTION (J3010) As Ordered ONE; -propofoL 200 MG/20 ML VIAL As Ordered ONE
[2020-12-10 16:19] LABS: BASO % 0.6 % (0.0-1.0); EOS # 0.1 10^3/uL (0.0-0.5); EOS % 1.8 % (0.0-3.0); HEMATOCRIT 40.4 % (36.0-47.0); HEMOGLOBIN 13.2 g/dl (12.0-15.5); LYMPH # 0.6 10^3/uL (1.5-5.0); LYMPH % 17.5 % (24.0-44.0); MEAN CORPUSCULAR HEMOGLOBIN 31.1 pg (27.0-33.0); MEAN CORPUSCULAR HGB CONC 32.7 g/dl (32.0-36.5); MEAN CORPUSCULAR VOLUME 95.1 fl (80.0-96.0); MONO # 0.2 10^3/uL (0.0-0.8); MONO % 6.3 % (2.0-8.0); NEUTROPHILS # 2.4 10^3/uL (1.5-8.5); NEUTROPHILS % 73.5 % (36.0-66.0); PLATELET COUNT, AUTOMATED 102 10^3/uL (150-450); RED BLOOD COUNT 4.25 10^6/uL (4.00-5.40); WHITE BLOOD COUNT 3.3 10^3/uL (4.0-10.0)
[2020-12-10 16:37] LABS: ALBUMIN 3.8 GM/DL (3.2-5.2); ALT/SGPT 39 U/L (12-78); BILIRUBIN,TOTAL 0.4 MG/DL (0.2-1.0); BLOOD UREA NITROGEN 20 MG/DL (7-18); CALCIUM LEVEL 9.1 MG/DL (8.8-10.2); CARBON DIOXIDE LEVEL 28 MEQ/L (21-32); CHLORIDE LEVEL 107 MEQ/L (98-107); CHOLESTEROL LEVEL 229 MG/DL (<200); CHOLESTEROL RISK RATIO 5.325 (<5); CREATININE FOR GFR 0.84 MG/DL (0.55-1.30); GLOMERULAR FILTRATION RATE > 60.0 (>39); GLUCOSE, FASTING 171 MG/DL (70-100); HDL CHOLESTEROL 43 MG/DL (>40); LDL CHOLESTEROL 150 MG/DL (<100); NON-HDL-C 186 MG/DL; POTASSIUM SERUM 4.9 MEQ/L (3.5-5.1); SODIUM LEVEL 139 MEQ/L (136-145); TOTAL PROTEIN 7.7 GM/DL (6.4-8.2); TRIGLYCERIDES LEVEL 181 MG/DL (<150)
[2020-12-10 16:45] LABS: CREATININE, URINE 56.4 MG/DL; MALB URINE SIEMENS 22.1 MG/L; MAU/CREAT RATIO 39.1 MCG/MG (0.0-30.0)
[2020-12-10 18:18] LABS: HEMOGLOBIN A1c 8.1 %
== END ==
LOC: M WUC 10:28
PROVIDERS: ATTEND Nurse Practitioner Family
DX: C21.0 Malignant neoplasm of anus, unspecified (principal); E11.65 Type 2 diabetes mellitus with hyperglycemia; Z13.220 Encounter for screening for lipoid disorders

== ENCOUNTER → 2021-05-06 | Outpatient (CLI) | payer MEDICARE, OTHER ==
[~2021-05-06] MED LIST changes: +LIDO1CRE42 TOP; -LIDO2.5C15 TOP
== END ==
LOC: M LABSMTC 11:17
PROVIDERS: ATTEND Anesthesiology
DX: Z01.818 Encounter for other preprocedural examination (principal); Z11.52 Encounter for screening for COVID-19

== ENCOUNTER → 2021-05-10 | Outpatient (CLI) | payer MEDICARE, OTHER ==
[2021-05-10 12:38] LABS: HEMOGLOBIN A1c 8.7 %
== END ==
LOC: M WUC 09:56
PROVIDERS: ATTEND Nurse Practitioner Family
DX: E11.65 Type 2 diabetes mellitus with hyperglycemia (principal)

== ENCOUNTER 2021-05-11 07:02 | Day surgery (SDC) | payer MEDICARE, OTHER ==
[~2021-05-11] VITALS: Ht 157.5 cm; Wt 68.9 kg
[~2021-05-11 07:02] MED LIST changes: +LIDOCAINE 2% 100MG/5ML SDV (FOR ANES.) As Ordered ONE; +NS 1,000 ML IV ONE; +propofoL 200 MG/20 ML VIAL As Ordered ONE
--- NOTE | 2021-05-11 08:43 | ROOR ---
Patient Name: Cherelle Beard Procedure Date: 05/11/2021 8:20 AM Date of : 1945 Age: 75 Room: [facility] Gender: Female Note Status: Finalized Procedure: Flexible Sigmoidoscopy Indications: High risk colon cancer surveillance: Personal history of colon cancer, Personal history of malignant neoplasm of the anal canal Providers: Julián Fabian MD Referring MD: Patti COBB Requesting Provider: Medicines: Monitored Anesthesia Care Complications: No immediate complications. Procedure: Pre-Anesthesia Assessment: - Prior to the procedure, a History and Physical was performed, and patient medications and allergies were reviewed. The patient is competent. The risks and benefits of the procedure and the sedation options and risks were discussed with the patient. All questions were answered and informed consent was obtained. Patient identification and proposed procedure were verified by the physician, the nurse and the anesthesiologist in the procedure room. Mental Status Examination: alert and oriented. Airway Examination: normal oropharyngeal airway and neck mobility. Respiratory Examination: clear to auscultation. CV Examination: normal. Prophylactic Antibiotics: The patient does not require prophylactic antibiotics. Prior Anticoagulants: The patient has taken no previous anticoagulant or antiplatelet agents. ASA Grade Assessment: III - A patient with severe systemic disease. After reviewing the risks and benefits, the patient was deemed in satisfactory condition to undergo the procedure. The anesthesia plan was to use monitored anesthesia care (MAC). Immediately prior to administration of medications, the patient was re-assessed for adequacy to receive sedatives. The heart rate, respiratory rate, oxygen saturations, blood pressure, adequacy of pulmonary ventilation, and response to care were monitored throughout the procedure. The physical status of the patient was re-assessed after the procedure. The Colonoscope was introduced through the anus and advanced to the splenic flexure. The flexible sigmoidoscopy was accomplished without difficulty. The patient tolerated the procedure well. The quality of the bowel preparation was adequate. Scope insertion time was 1 minute. Scope withdrawal time was 6 minutes. The total duration of the procedure was 8 minutes. Findings: The perianal and digital rectal examinations were normal. An area of moderately congested mucosa was found in the rectum and in the sigmoid colon. Biopsies were taken with a cold forceps for histology. Verification of patient identification for the specimen was done by the physician and nurse using the patient's name, date and medical record number. Estimated blood loss was minimal. Non-bleeding external and internal hemorrhoids were found during retroflexion. The hemorrhoids were large. Multiple small and large-mouthed diverticula were found from sigmoid to descending colon. There was no evidence of diverticular bleeding. Impression: - Congested mucosa in the rectum and in the sigmoid colon. Biopsied. - Non-bleeding external and internal hemorrhoids. - Moderate diverticulosis from sigmoid to descending colon. There was no evidence of diverticular bleeding. Recommendation: - The patient will be observed post-procedure, until all discharge criteria are met. - Patient has a contact number available for emergencies. The signs and symptoms of potential delayed complications were discussed with the patient. Return to normal activities tomorrow. Written discharge instructions were provided to the patient. - Continue present medications. - ProctoFoam-HC: Apply externally daily for 1 week. - Await pathology results. - Repeat flexible sigmoidoscopy in 1 year for surveillance. - Return to GI clinic if persistent symptoms or new symptoms. - Return to primary care physician. Procedure Code(s): --- Professional --- 88631, Sigmoidoscopy, flexible; with biopsy, single or multiple Diagnosis Code(s): --- Professional --- Z85.038, Personal history of other malignant neoplasm of large intestine K62.89, Other specified diseases of anus and rectum K63.89, Other specified diseases of intestine K64.8, Other hemorrhoids Z85.048, Personal history of other malignant neoplasm of rectum, rectosigmoid junction, and anus K57.30, Diverticulosis of large intestine without perforation or abscess without bleeding CPT copyright 2019 [employer]. All rights reserved. The codes documented in this report are preliminary and upon hcc coders review may be revised to meet current compliance requirements. Julián Fabian MD Julián Fabian MD 05/11/2021 8:42:34 AM Electronically signed by Julián Fabian MD Number of Addenda: 0 Note Initiated On: 05/11/2021 8:20 AM Estimated Blood Loss: Estimated blood loss was minimal.
[2021-05-11 09:00] VITALS: BP 168/72
== END 2021-05-11 09:04 | disposition home or self-care (01) ==
LOC: M OPP 07:02
PROVIDERS: ATTEND Internal Medicine Gastroenterology
DX: Z12.11 Encounter for screening for malignant neoplasm of colon (principal); Z85.048 Personal history of other malignant neoplasm of rectum, rectosigmoid junction, and anus; Z85.038 Personal history of other malignant neoplasm of large intestine; Z80.0 Family history of malignant neoplasm of digestive organs; K63.89 Other specified diseases of intestine; K62.89 Other specified diseases of anus and rectum; K57.30 Diverticulosis of large intestine without perforation or abscess without bleeding; K64.8 Other hemorrhoids; K51.90 Ulcerative colitis, unspecified, without complications; Z92.3 Personal history of irradiation; Z79.899 Other long term (current) drug therapy; Z87.891 Personal history of nicotine dependence

== ENCOUNTER → 2021-08-26 | Outpatient (CLI) | payer MEDICARE, OTHER ==
[~2021-08-26] MED LIST changes: -LIDOCAINE 2% 100MG/5ML SDV (FOR ANES.) As Ordered ONE; -NS 1,000 ML IV ONE; -propofoL 200 MG/20 ML VIAL As Ordered ONE
[2021-08-26 16:35] LABS: ALBUMIN 3.3 GM/DL (3.2-5.2); ALT/SGPT 30 U/L (12-78); BILIRUBIN,TOTAL 0.4 MG/DL (0.2-1.0); BLOOD UREA NITROGEN 14 MG/DL (7-18); CALCIUM LEVEL 9.4 MG/DL (8.8-10.2); CARBON DIOXIDE LEVEL 27 MEQ/L (21-32); CHLORIDE LEVEL 106 MEQ/L (98-107); CHOLESTEROL LEVEL 227 MG/DL (<200); CHOLESTEROL RISK RATIO 7.827 (<5); CREATININE FOR GFR 0.93 MG/DL (0.55-1.30); GLOMERULAR FILTRATION RATE > 60.0 (>39); GLUCOSE, FASTING 177 MG/DL (70-100); HDL CHOLESTEROL 29 MG/DL (>40); LDL CHOLESTEROL 155 MG/DL (<100); NON-HDL-C 198 MG/DL; POTASSIUM SERUM 4.5 MEQ/L (3.5-5.1); SODIUM LEVEL 140 MEQ/L (136-145); TOTAL PROTEIN 7.7 GM/DL (6.4-8.2); TRIGLYCERIDES LEVEL 216 MG/DL (<150)
[2021-08-26 19:26] LABS: HEMOGLOBIN A1c 7.6 %
== END ==
LOC: M WUC 11:06
PROVIDERS: ATTEND Nurse Practitioner Family
DX: E11.65 Type 2 diabetes mellitus with hyperglycemia (principal); E78.2 Mixed hyperlipidemia; K74.60 Unspecified cirrhosis of liver

== ENCOUNTER → 2022-01-21 | Outpatient (CLI) | payer OTHER ==
[~2022-01-21] MED LIST changes: -D31000TA2 PO; +VITA100093 PO
== END ==
LOC: M RAD 10:27
PROVIDERS: ATTEND Internal Medicine Gastroenterology
DX: K57.30 Diverticulosis of large intestine without perforation or abscess without bleeding (principal)

== ENCOUNTER → 2022-01-31 | Outpatient (CLI) | payer OTHER | LOC: M LABSMTC 09:48 | PROVIDERS: ATTEND Anesthesiology | DX: Z01.818 Encounter for other preprocedural examination (principal); Z11.52 Encounter for screening for COVID-19 ==

== ENCOUNTER → 2022-03-03 | Outpatient (CLI) | payer OTHER | LOC: M LABSMTC 09:15 | PROVIDERS: ATTEND Anesthesiology | DX: Z01.818 Encounter for other preprocedural examination (principal); Z11.52 Encounter for screening for COVID-19 ==

== ENCOUNTER 2022-03-08 06:47 | Day surgery (SDC) | payer OTHER ==
[~2022-03-08] VITALS: Ht 154.9 cm; Wt 65.2 kg
[~2022-03-08 06:47] MED LIST changes: +LIDOCAINE 2% 100MG/5ML SDV (FOR ANES.) As Ordered ONE; +NS 1,000 ML IV ONE; +propofoL 200 MG/20 ML VIAL As Ordered ONE
[2022-03-08 08:20] VITALS: BP 160/75
== END 2022-03-08 08:39 | disposition home or self-care (01) ==
LOC: M OPP 06:47
PROVIDERS: ATTEND Internal Medicine Gastroenterology
DX: Z53.8 Procedure and treatment not carried out for other reasons (principal); K55.20 Angiodysplasia of colon without hemorrhage; K62.7 Radiation proctitis; K62.89 Other specified diseases of anus and rectum; K63.89 Other specified diseases of intestine; C21.1 Malignant neoplasm of anal canal; K57.30 Diverticulosis of large intestine without perforation or abscess without bleeding; K64.8 Other hemorrhoids; Z79.899 Other long term (current) drug therapy; Z79.891 Long term (current) use of opiate analgesic; Z80.0 Family history of malignant neoplasm of digestive organs; Z92.21 Personal history of antineoplastic chemotherapy; Z92.3 Personal history of irradiation

== ENCOUNTER → 2022-06-13 | Outpatient (CLI) | payer MEDICARE, OTHER ==
[~2022-06-13] MED LIST changes: -LIDOCAINE 2% 100MG/5ML SDV (FOR ANES.) As Ordered ONE; -NS 1,000 ML IV ONE; -propofoL 200 MG/20 ML VIAL As Ordered ONE
== END ==
LOC: M WHC 08:59
PROVIDERS: ATTEND Internal Medicine Gastroenterology
DX: K74.60 Unspecified cirrhosis of liver (principal)

== ENCOUNTER 2024-07-18 11:45 | Emergency (ER) | payer OTHER, MEDICARE ==
[~2024-07-18] VITALS: Ht 154.9 cm; Wt 63.6 kg
[~2024-07-18 11:45] MED LIST changes: -LIDO1CRE42 TOP; +LIDO30CR18 TOP
[2024-07-18 14:45] VITALS: BP 169/74; TEMP 97.2; O2SAT 100
== END 2024-07-18 14:55 | disposition left against medical advice (07) ==
LOC: EDBD 11:45 → M ED 11:45
DX: M23.91 Unspecified internal derangement of right knee (principal); V49.40XA Driver injured in collision with unspecified motor vehicles in traffic accident, initial encounter; M25.461 Effusion, right knee; M25.78 Osteophyte, vertebrae; M47.892 Other spondylosis, cervical region; E11.9 Type 2 diabetes mellitus without complications; F41.9 Anxiety disorder, unspecified; Z53.9 Procedure and treatment not carried out, unspecified reason; Y92.410 Unspecified street and highway as the place of occurrence of the external cause; Y93.89 Activity, other specified; Y99.9 Unspecified external cause status

== ENCOUNTER 2024-08-15 11:33 | Outpatient (RCR) | payer OTHER, MEDICARE | END 2024-08-24 | LOC: M PT 11:33 | PROVIDERS: ATTEND Orthopaedic Surgery | DX: S82.001D Unspecified fracture of right patella, subsequent encounter for closed fracture with routine healing (principal) ==

== ENCOUNTER → 2024-09-04 | Outpatient (CLI) | payer OTHER, MEDICARE | LOC: M SOG 09:34 | PROVIDERS: ATTEND Orthopaedic Surgery | DX: M25.561 Pain in right knee (principal); S82.001A Unspecified fracture of right patella, initial encounter for closed fracture; W18.30XA Fall on same level, unspecified, initial encounter; Y92.009 Unspecified place in unspecified non-institutional (private) residence as the place of occurrence of the external cause ==

== ENCOUNTER 2024-09-23 14:54 | Outpatient (RCR) | payer OTHER, MEDICARE | END 2024-09-24 | LOC: M PT 14:54 | PROVIDERS: ATTEND Orthopaedic Surgery | DX: S82.001D Unspecified fracture of right patella, subsequent encounter for closed fracture with routine healing (principal) ==

== ENCOUNTER 2024-10-10 15:26 | Outpatient (RCR) | payer OTHER, MEDICARE | END 2024-10-25 | LOC: M PT 15:26 | PROVIDERS: ATTEND Orthopaedic Surgery | DX: S82.001D Unspecified fracture of right patella, subsequent encounter for closed fracture with routine healing (principal) ==

== ENCOUNTER → 2024-11-06 | Outpatient (CLI) | payer OTHER, MEDICARE | LOC: M SOG 07:55 | PROVIDERS: ATTEND Orthopaedic Surgery | DX: Z53.9 Procedure and treatment not carried out, unspecified reason (principal) ==

== ENCOUNTER 2025-05-07 18:37 | Emergency (ER) | payer MEDICARE, OTHER ==
[~2025-05-07] VITALS: Ht 157.5 cm; Wt 59.1 kg
[~2025-05-07 18:37] MED LIST changes: -BIOT1000 PO; +BIOT10002 PO; -EQL50TAB2 PO; -RA T500C2 PO; +TURM500C10 PO; +VITA1TAB82 PO
[2025-05-07 20:02] LABS: BASO # 0.0 10^3/uL (0.0-0.2); BASO % 0.8 % (0.0-1.0); EOS # 0.1 10^3/uL (0.0-0.5); EOS % 2.0 % (0.0-3.0); LYMPH # 0.6 10^3/uL (1.5-5.0); LYMPH % 11.5 % (24.0-44.0); MONO # 0.3 10^3/uL (0.0-0.8); MONO % 5.7 % (2.0-8.0); NEUTROPHILS # 3.9 10^3/uL (1.5-8.5); NEUTROPHILS % 79.8 % (36.0-66.0); PLATELET COUNT, AUTOMATED 156 10^3/uL (150-450)
[2025-05-07 20:34] LABS: ALT/SGPT 21.0 U/L (7.0-40); AST/SGOT 35.0 U/L (<34); CALCIUM LEVEL 9.1 MG/DL (8.3-10.6); CARBON DIOXIDE LEVEL 22.0 MMOL/L (20-31); CHLORIDE LEVEL 97.0 MMOL/L (98-107); CREATININE FOR GFR 0.92 MG/DL (0.55-1.30); GLOMERULAR FILTRATION RATE 62.9 (>32); POTASSIUM SERUM 4.4 MMOL/L (3.5-5.1); SODIUM LEVEL 132.0 MMOL/L (136-145)
[2025-05-07] MEDS ORDERED: CAYE450C3 PO (21:45)
[2025-05-07] MEDS ORDERED: [UNRECOGNIZED DRUG - CODE] PO (21:45)
[2025-05-07] MEDS ORDERED: TUME1CAP PO (21:45)
[2025-05-07] MEDS ORDERED: VITATAB73 PO (21:45)
[2025-05-07 22:22] LABS: CK-MB VALUE MASS 3.0 NG/ML (<3.6)
[2025-05-07 22:23] LABS: CPK CREATINE PHOSPHOKINASE 71.0 U/L (34-145); MB/CK RELATIVE INDEX 4.22 (< OR =4)
[2025-05-07] MEDS: ASPIRIN 325 MG TAB PO ONE (23:20)
[2025-05-07 23:21] VITALS: BP 142/63
[2025-05-07] MEDS: FUROSEMIDE 40 MG/4 ML VIAL IV ONE (23:21)
[2025-05-08 00:34] LABS: CK-MB VALUE MASS 3.3 NG/ML (<3.6)
[2025-05-08 00:37] LABS: CPK CREATINE PHOSPHOKINASE 69.0 U/L (34-145); MB/CK RELATIVE INDEX 4.78 (< OR =4)
[2025-05-08 06:30] VITALS: BP 135/64; TEMP 96.9; O2SAT 95
== END 2025-05-08 06:32 | disposition short-term general hospital (02) ==
LOC: M ED 18:37
DX: I21.3 ST elevation (STEMI) myocardial infarction of unspecified site (principal); I50.22 Chronic systolic (congestive) heart failure; I25.2 Old myocardial infarction; J91.8 Pleural effusion in other conditions classified elsewhere; C61 Malignant neoplasm of prostate; Z79.810 Long term (current) use of selective estrogen receptor modulators (SERMs)
CPT/HCPCS: 71045; 80048; 80076; 82550; 82553; 83880; 84484; 85025; 93005; 96374; 99285; J1938